=== PATIENT | male | born 1950 | race African-American/Black ===

== ENCOUNTER 2018-12-12 13:41 | Outpatient (CLI) | payer BC ==
--- NOTE | 2018-12-12 14:14 | ULT ---
RENAL ULTRASOUND: HISTORY: Acute renal failure. FINDINGS: Real-time imaging of the right and left kidneys were performed. The right kidney measures 9.1 cm and the left kidney 9.6 cm in size. No signs of cyst, mass, or obstruction. The bladder is never fully distended . There is a suggestion of some possible bladder wall thickening , but this could be on the basis of under distention. IMPRESSION: 1. Findings suggesting some mild bladder wall thickening, although this could be related mainly to u nder distention, although this be related mainly to under distention. 2. No signs of any obstruction of either kidney. Renal cortex appears fairly well preserved. POS: TPC
== END 2018-12-12 13:42 | disposition home or self-care (01) ==
LOC: BICULT 13:41
PROVIDERS: ATTEND Internal Medicine Nephrology
DX: N17.9 Acute kidney failure, unspecified (principal)
CPT/HCPCS: 76770

== ENCOUNTER 2020-03-07 12:25 | Day surgery (SDC) | payer MEDICARE ==
[2020-03-07 06:53] VITALS: BMI 29.7
[2020-03-07 13:22] LABS: #Basophils 0.1 thou/uL (0.0-0.2); #Eosinphils 0.1 thou/uL (0.0-0.7); #Monocytes 0.5 thou/uL (0.11-0.59); #Neutrophils 4.3 thou/uL (1.40-6.50); %Basophils 1.1 % (0.0-1.0); %Eosinophils 1.9 % (0.0-10.0); %Lymphocytes 28.7 % (21.0-51.0); %Monocytes 7.1 % (0.0-10.0); %Neutrophils 61.3 % (42.0-75.0); Mean Corpuscular HGB CONC 30.9 g/dL (32.0-36.0); Mean Corpuscular Hemoglobin 27.5 pg (27.0-31.0); Mean Corpuscular Volume 88.9 fL (78.0-98.0); Mean Platelet Volume 9.4 fL (7.4-10.4); Platelet Count 221 thou/uL (130-400); RBC Distribution Width 17.3 % (11.5-14.5); Red Blood Cell (RBC) Count 4.72 mill/uL (4.70-6.10)
[2020-03-07 13:40] LABS: INR-International Normal Ratio 1.1; PTT 34.1 sec (22.9-36.1)
[2020-03-07 14:51] VITALS: BP 136/90
[2020-03-07 15:22] LABS: RBC Count-Automated (BF) 5608 /cu.mm; WBC/Nucleated-Auto (BF) 238 uL
[2020-03-07 15:28] LABS: Body Fluid Source Ascites Body Fluid; Tube # EDTA
[2020-03-07 15:29] LABS: BF Color Yellow; Clarity Hazy (Clear)
[2020-03-07 15:31] LABS: BF Segmented Neutrophils 8 %; Cell Count Non Hematic 22 %; Eosinophils 3 %; Lymphocytes 66 %
--- NOTE | 2020-03-07 16:40 | ULT ---
Ultrasound-guided paracentesis: HISTORY: Chronic kidney disease and ascites. FINDINGS: Informed consent obtained prior to the procedure. Preprocedural imaging demonstrated intrap eritoneal free fluid. Only a small amount of intraperitoneal free fluid is seen adjacent to the right hepatic lobe. An area was marked in the right upper quadrant, and then meticulously prepped and draped in normal st erile fashion and anesthetized with 1% buffered lidocaine. With direct sonographic guidance, a 25-gauge needle was advanced into the abdomen. Approximately 20 m L of clear straw-colored fluid was aspirated. The needle was removed, and hemostasis was achieved with direct pressure. A dry sterile dressing was placed. The patient tolerated the procedure well and without immediate complication. IMPRESSION: 1. Technically successful ultrasound-guided paracentesis. 2 Small amount of ascites adjacent to the right hepatic lobe.
== END 2020-03-07 14:30 | disposition home or self-care (01) ==
LOC: ULT 12:25
PROVIDERS: ATTEND Internal Medicine Nephrology
PROC: 0W9G3ZZ Drainage of Peritoneal Cavity, Percutaneous Approach (ICD-10-PCS; principal; 2020-03-07)
DX: R18.8 Other ascites (principal); I12.9 Hypertensive chronic kidney disease with stage 1 through stage 4 chronic kidney disease, or unspecified chronic kidney disease; N18.3 Chronic kidney disease, stage 3 (moderate); Z79.899 Other long term (current) drug therapy
CPT/HCPCS: 49083; 85025; 85060; 85610; 85730; 87070; 87205; 89051

== ENCOUNTER 2020-03-25 16:58 | Inpatient (IN) | payer MEDICARE, OTHER ==
[2020-03-25 17:30] LABS: #Basophils 0.1 thou/uL (0.0-0.2); #Eosinphils 0.1 thou/uL (0.0-0.7); #Lymphocytes 1.8 thou/uL (1.20-3.40); #Monocytes 0.5 thou/uL (0.11-0.59); %Eosinophils 1.8 % (0.0-10.0); %Lymphocytes 23.3 % (21.0-51.0); %Neutrophils 66.8 % (42.0-75.0); Hemoglobin 12.8 g/dL (14.0-18.0); Mean Corpuscular HGB CONC 31.4 g/dL (32.0-36.0); Mean Corpuscular Hemoglobin 27.7 pg (27.0-31.0); Mean Corpuscular Volume 88.3 fL (78.0-98.0); Mean Platelet Volume 9.4 fL (7.4-10.4); Platelet Count 220 thou/uL (130-400); RBC Distribution Width 17.4 % (11.5-14.5); Red Blood Cell (RBC) Count 4.63 mill/uL (4.70-6.10); White Blood Cell (WBC) Count 7.5 thou/uL (4.8-10.8)
[2020-03-25 18:00] LABS: ALT (SGPT) 17 U/L (8-55); AST (SGOT) 19 U/L (5-34); Albumin 3.3 g/dL (3.4-4.8); Alkaline Phosphatase 142 U/L (40-110); Anion Gap 16 mmol/L (10-20); BUN (Urea Nitrogen) 30 mg/dL (8.4-25.7); Bilirubin, Total 0.9 mg/dL (0.2-1.2); Calc. Creatinine Clearance 0 mL/min (70-130); Calcium 8.7 mg/dL (7.8-10.44); Carbon Dioxide 20 mmol/L (23-31); Chloride 109 mmol/L (98-107); Estimated GFR-MDRD 29; Glucose 108 mg/dL (80-115); Protein, Total 6.3 g/dL (5.8-8.1); Sodium 141 mmol/L (136-145)
--- NOTE | 2020-03-25 18:17 | RAD ---
CHEST TWO VIEWS: 03/25/20 COMPARISON: None. HISTORY: Fluid overload. FINDINGS: Cardiac silhouette appears enlarged. Small bilateral pleural effusions are suspected, left greater t lemus right. There is pulmonary vascular congestion. No pneumothorax is seen. No lobar consolidation or alveolar edema. IMPRESSION: Enlarged cardiac silhouette with small bilateral pleural effusions and pulmonary vascular congestion suspicious for congestive failure and associated edema. Recommend follow-up imaging following treatme nt to document resolution. POS: CARLO
[2020-03-25 18:20] LABS: CKMB 6.1 ng/mL (0-6.6)
[2020-03-25] MEDS ORDERED: Aspirin Chewable 81 MG TAB ONE (18:32)
[2020-03-25] MEDS ORDERED: Furosemide 40 MG/4 ML VIAL ONE (18:34)
[2020-03-25] MEDS ORDERED: Magnesium 2 GM/50 ML BAG (IN WATER) ONE (19:13)
[2020-03-25] MEDS ORDERED: Nitroglycerin 2% Ointment 1 INCH/1 GM Packet ONE (19:13)
[2020-03-25 21:16] LABS: Troponin I 0.064 ng/mL (< 0.028)
[2020-03-25] MEDS ORDERED: Nitroglycerin 0.4 MG TAB (25 Tab Bottle) SL PRN (22:26)
[2020-03-25] MEDS ORDERED: cloNIDine 0.1 MG TAB PO PRN (22:35)
[2020-03-25] MEDS ORDERED: Guaifenesin DM 100-10/5 ML UDCUP PO PRN (22:35)
[2020-03-25] MEDS ORDERED: Acetaminophen 325 MG TAB PO PRN (22:35)
[2020-03-25] MEDS ORDERED: Labetalol HCl 100 MG/20 ML VIAL SLOW IVP PRN (22:35)
[2020-03-25] MEDS ORDERED: hydrALAZINE 20 MG/ML VIAL SLOW IVP PRN (22:35)
[2020-03-25] MEDS ORDERED: Ondansetron PF 4 MG/2 ML Vial IVP PRN (22:35)
[2020-03-25] MEDS ORDERED: Promethazine HCl 12.5 MG in Sodium Chloride 0.9% 50 ML IVPB PRN (22:35)
--- NOTE | 2020-03-25 22:36 | PDOC.HHP ---
Hospitalist HPI - History of Present Illness Volume overload, shortness of breath History of Present Illness: Patient is a 69 year old male with PMH hernia, gout, HTN, CKD, GERD sent from Dr Nevarez office for volume overload. Patient is a poor historian, but reports that Dr Butterfield is basically his PCP since his saw Dr Butterfield while she was on HD (now has kidney transplant). He went to Dr Butterfield today for some shortness of breath which has been worsening over last several months, worse with exertion. He also reports extreme tiredness, swelling in BLE. Patient is on lasix every other day which was helping somewhat, he has been on this for a few months. He does report some CKD history, GFR 30 here, but denies any history of urinary retention, no history of CHF or other cardiac testing or cardiac history. He deniest chest pain or palptiations. Dr Butterfield observed signs of overload, such as JVD and abnormal EKG, patient referred to ED for cardiac workup. In ED, CXR w/ congestion, TnI 0.075[place] [address], exam w/ s3, 2+ pitting edema, vital signs hypertensive and tachypneic, EKG w/ 1st degree AVB, nonspecfic T wave changes, patient received asa, nitropaste, IV lasix, admitted for further workup and care. Hospitalist ROS - Review of Systems Constitutional: denies: fever, chills, sweats, weakness, malaise, other Eyes: denies: pain, vision change, conjunctivae inflammation, eyelid inflammation, redness, other ENT: denies: ear pain, ear discharge, nose pain, nose discharge, nose congest ion, mouth pain, mouth swelling, throat pain, throat swelling, other Respiratory: reports: shortness of breath, SOB with excertion. denies: cough, dry, hemoptysis, pleuritic pain, sputum, wheezing, other Cardiovascular: denies: chest pain, palpitations, orthopnea, paroxysmal noc. dyspnea, edema, light headedness, other Gastrointestinal: denies: nausea, vomiting, abdominal pain, diarrhea, constipation, melena, hematochezia, other Genitourinary: denies: dysuria, frequency, incontinence, hematuria, retention, other Musculoskeletal: denies: neck pain, shoulder pain, arm pain, back pain, hand pain, leg pain, foot pain, other Skin: denies: rash, lesions, laurel, bruising, other Neurological: denies: weakness, numbness, incoordination, change in speech, confusion, seizures, other All other systems reviewed; all pertinent +/- noted in HPI/Subj - Medication Medications: metoprolol tartrate oral TueMar 25, 2020 19:39 RENETTA Abbott, Nicole tablet : Strength - 25 mg : ORAL Patient Dose: 1 tab(s) Oral once a day (at bedtime). omeprazole TueMar 25, 2020 19:40 RENETTA Abbott, Nicole capsule,delayed release(DR/EC) : Strength - 10 mg : ORAL Patient Dose: Unknown. Lasix oral TueMar 25, 2020 19:40 RENETTA Abbott Mikayla tablet : Strength - 40 mg : ORAL Patient Dose: 1 tab(s) Oral once a day.TAKE ONE PILL EVERY OTHER DAY. Hospitalist History - Past Medical History Other Medical History: hernia, gout, HTN, CKD, GERD - Past Surgical History Other Surgical History: colon surgery - Family History Family History: reports: no pertinent history - Social History Smoking Status: Never smoker Alcohol: reports: None Drugs: reports: none - Exam General Appearance: NAD, awake alert Eye: PERRL, anicteric sclera ENT: normocephalic atraumatic, no oropharyngeal lesions, moist mucosa Neck: supple, symmetric, no JVD, no thyromegaly, no lymphadenopathy, no carotid bruit Heart: RRR, no murmur, no gallops, no rubs, normal peripheral pulses Heart - other findings: s3 Respiratory: CTAB, normal chest expansion, no tachypnea, normal percussion Respiratory - other findings: bibasilar dependant crackles. Gastrointestinal: soft, non-tender, non-distended, normal bowel sounds, no palpable masses, no hepatomegaly, no splenomegaly, no bruit Extremities: no cyanosis, no clubbing, 2+ LE edema Skin: normal turgor, no lesions, no rashes Neurological: cranial nerve grossly intact, normal sensation to touch, no weakness, no focal deficits, no new deficit Musculoskeletal: normal tone, normal strength, no muscle wasting Psychiatric: normal affect, normal behavior, A&O x 3 Hospitalist Results - Labs Result Diagrams: 03/26/20 03:33 03/25/20 17:21 Lab results: WBC 7.5 thou/uL (4.8-10.8) 03/25/20 17:21 Hgb 12.8 g/dL (14.0-18.0) L 03/25/20 17:21 Hct 40.9 % (42.0-52.0) L 03/25/20 17:21 MCV 88.3 fL (78.0-98.0) 03/25/20 17:21 Plt Count 220 thou/uL (130-400) 03/25/20 17:21 Neutrophils % 66.8 % (42.0-75.0) 03/25/20 17:21 Sodium 141 mmol/L (136-145) 03/25/20 17:21 Potassium 4.0 mmol/L (3.5-5.1) 03/25/20 17:21 Chloride 109 mmol/L (98-107) H 03/25/20 17:21 Carbon Dioxide 20 mmol/L (23-31) L 03/25/20 17:21 BUN 30 mg/dL (8.4-25.7) H 03/25/20 17:21 Creatinine 2.64 mg/dL (0.7-1.3) H 03/25/20 17:21 Glucose 108 mg/dL (80-115) 03/25/20 17:21 Calcium 8.7 mg/dL (7.8-10.44) 03/25/20 17:21 Total Bilirubin 0.9 mg/dL (0.2-1.2) 03/25/20 17:21 AST 19 U/L (5-34) 03/25/20 17:21 ALT 17 U/L (8-55) 03/25/20 17:21 Alkaline Phosphatase 142 U/L (40-110) H 03/25/20 17:21 CK-MB (CK-2) 6.1 ng/mL (0-6.6) 03/25/20 17:21 Troponin I 0.064 ng/mL (< 0.028) H 03/25/20 20:44 B-Natriuretic Peptide 86918.3 pg/mL (0-100) H 03/25/20 17:21 Serum Total Protein 6.3 g/dL (5.8-8.1) 03/25/20 17:21 Albumin 3.3 g/dL (3.4-4.8) L 03/25/20 17:21 Additional comment: VITAL SIGNS TueMar 25, 2020 19:43 RENETTA Abbott, Nicole BP: 145/116 Pulse: 89 Resp: 22 Temp: 97.7 (Oral) Pain: 0 O2 sat: 96 on (Room Air) Time: 03/25/2020 19:43. - EKG Interpretation EKG: NSR 89 bpm, QTc 464, HI 210/AVB, no acute St changes, nonspecific T wave changes Hospitalist H&P A/P - Plan Plan: Patient is a 69 year old male with PMH hernia, gout, HTN, CKD, GERD sent from Dr Nevarez office for volume overload. # volume overload # CKD III-IV # possible CHF # elevated troponin - concerning for CHF Patient went to Dr Butterfield today for progressive shortness of breath, fatigue, swelling in BLE, on PO lasix, no history of CHF or other cardiac testing or cardiac history. He denies chest pain or palptiations. In ED, CXR w/ congestion, TnI 0.075, [place] [address], exam w/ s3, 2+ pitting edema, vital signs hypertensiv e and tachypneic, EKG w/ 1st degree AVB, nonspecfic T wave changes, patient received asa, nitropaste, IV lasix, admitted for further workup and care. - admit to telemetry - start IV lasix - consult cardiology - echo, stress test - I/Os - continue asa, nitropatch, statin, BB # hypomagnisemia - replacement parameters # HTN - PRN medications available # gout - resume home meds once med rec complete # GERD - ppx ordered DVT/GI ppx Full code
[2020-03-25] MEDS ORDERED: Electrolyte Replacement Protocol FS SCH (22:45)
[2020-03-26 01:48] LABS: Troponin I 0.088 ng/mL (< 0.028)
[2020-03-26 03:07] VITALS: BMI 31.1
[2020-03-26 03:59] LABS: #Basophils 0.1 thou/uL (0.0-0.2); #Eosinphils 0.3 thou/uL (0.0-0.7); #Lymphocytes 1.8 thou/uL (1.20-3.40); #Monocytes 0.7 thou/uL (0.11-0.59); #Neutrophils 5.7 thou/uL (1.40-6.50); %Basophils 0.7 % (0.0-1.0); %Eosinophils 3.1 % (0.0-10.0); %Lymphocytes 21.2 % (21.0-51.0); %Monocytes 7.8 % (0.0-10.0); %Neutrophils 67.2 % (42.0-75.0); Hemoglobin 11.8 g/dL (14.0-18.0); Mean Corpuscular HGB CONC 30.3 g/dL (32.0-36.0); Mean Corpuscular Hemoglobin 26.9 pg (27.0-31.0); Mean Corpuscular Volume 88.6 fL (78.0-98.0); Mean Platelet Volume 9.7 fL (7.4-10.4); Platelet Count 212 thou/uL (130-400); RBC Distribution Width 17.3 % (11.5-14.5); White Blood Cell (WBC) Count 8.5 thou/uL (4.8-10.8)
[2020-03-26 04:23] LABS: Anion Gap 15 mmol/L (10-20); BUN (Urea Nitrogen) 29 mg/dL (8.4-25.7); Calc. Creatinine Clearance 38 mL/min (70-130); Calcium 8.6 mg/dL (7.8-10.44); Carbon Dioxide 21 mmol/L (23-31); Cardiac Risk 3.1 (Less than 4.5); Chloride 109 mmol/L (98-107); Cholesterol 117 mg/dl (< 200 Desired); Estimated GFR-MDRD 31; Glucose 139 mg/dL (80-115); HDL Cholesterol 38 mg/dL (>60 Neg Risk); LDL Cholesterol, Calculated 61 mg/dL; Magnesium 1.7 mg/dL (1.6-2.6); Potassium 3.6 mmol/L (3.5-5.1); Sodium 141 mmol/L (136-145); Triglycerides 92 mg/dL (Less than 150)
[2020-03-26 04:25] LABS: Troponin I 0.089 ng/mL (< 0.028)
[2020-03-26] MEDS ORDERED: Magnesium 2 GM/50 ML 2 GM in Premix Bag 1 BAG IVPB SCH (04:30)
[2020-03-26] MEDS: Nitroglycerin 2% Ointment 1 INCH/1 GM Packet TOP SCH ×3 (05:56→20:25)
[2020-03-26] MEDS: Aspirin Chewable 81 MG TAB PO SCH (08:51)
[2020-03-26] MEDS: Furosemide 40 MG/4 ML VIAL SLOW IVP SCH (08:51)
[2020-03-26] MEDS: Heparin 5,000 UNITS/ML VIAL SC SCH ×2 (08:52→20:25)
[2020-03-26 12:02] LABS: SARS-CoV-2 MS2 Positive; SARS-CoV-2 N Gene Negative; SARS-CoV-2 S Gene Negative; SARS-CoV-2 by NAA Not Detected (NotDetected); SARS-CoV-2 orf1ab Negative
--- NOTE | 2020-03-26 13:45 | PDOC.HOSPP ---
- Subjective Encounter Date: 03/26/20 Encounter Time: 13:40 Subjective: f/u for volume overload and likely CHF in conjunction with CKD. Receiving Lasix IV and - Objective Vital Signs & Weight: Vital Signs (12 hours) Temp Pulse Resp BP Pulse Ox 03/26/20 13:25 97.7 F 98 16 120/79 95 03/26/20 07:39 98.5 F 89 12 137/96 H 95 03/26/20 04:00 97.8 F 92 18 130/96 H 97 Weight Weight 210 lb 14.4 oz Result Diagrams: 03/26/20 03:33 03/26/20 03:33 Additional Labs: Laboratory Tests 03/25/20 03/25/20 03/25/20 17:21 17:21 17:21 Hgb 12.8 L Creatinine 2.64 H Magnesium Troponin I B-Natriuretic Peptide 48106.3 H 03/25/20 03/25/20 03/25/20 17:21 17:29 20:44 Hgb Creatinine Magnesium 1.5 L Troponin I 0.075 H 0.064 H B-Natriuretic Peptide 03/26/20 03/26/20 01:00 03:33 Hgb Creatinine Magnesium Troponin I 0.088 H 0.089 H B-Natriuretic Peptide Radiology Reviewed by me: Yes (PCXR - bilat pulm edema) EKG Reviewed by me: Yes (Tele - SR) Hospitalist ROS - Medication Medications: Active Medications Generic Name Dose Route Start Last Admin Trade Name Freq PRN Reason Stop Dose Admin Aspirin 81 mg 03/26/20 09:00 03/26/20 08:51 Aspirin Chewable 81 Mg Tab PO 81 mg DAILY CASSIDY Administration Furosemide 40 mg 03/26/20 09:00 03/26/20 08:51 Furosemide 40 Mg/4 Ml Vial SLOW IVP 40 mg DAILY CASSIDY Administration Heparin Sodium (Porcine) 5,000 units 03/26/20 09:00 03/26/20 08:52 Heparin 5,000 Units/Ml Vial SC Not Given BID CASSIDY Nitroglycerin 0.5 inch 03/26/20 06:00 03/26/20 05:56 Nitroglycerin 2% Ointment 1 Inch/1 Gm Packet TOP Not Given Q8HR CASSIDY Pantoprazole Sodium 40 mg 03/26/20 09:00 03/26/20 08:51 Pantoprazole 40 Mg Tab PO 40 mg DAILY CASSIDY Administration Sodium Chloride 10 ml 03/26/20 09:00 03/26/20 08:53 Flush - Normal Saline 10 Ml Syringe IVF 10 ml Q12HR CASSIDY Administration - Exam General Appearance: NAD, awake alert Eye: PERRL, anicteric sclera ENT: normocephalic atraumatic, no oropharyngeal lesions Neck: supple, symmetric, no JVD, no thyromegaly, no lymphadenopathy Heart: RRR, no gallops, no rubs, normal peripheral pulses Heart - other findings: S1, S2, faint S3 Respiratory: no ronchi, normal chest expansion, no tachypnea Respiratory - other findings: bibasilar rales Gastrointestinal: soft, non-tender, non-distended, normal bowel sounds Extremities: no cyanosis, 2+ LE edema Skin: normal turgor Neurological: cranial nerve grossly intact, no new deficit Musculoskeletal: normal tone, normal strength Psychiatric: normal affect, A&O x 3 Hosp A/P (1) Acute CHF (congestive heart failure) Code(s): I50.9 - HEART FAILURE, UNSPECIFIED Status: Acute Qualifiers: Heart failure type: unspecified Qualified Code(s): I50.9 - Heart failure, unspecified Plan: Continue Lasix 40mg IV daily, daily I/O's, daily weight, 2D echo pending (2) Acute kidney injury superimposed on CKD Code(s): N17.9 - ACUTE KIDNEY FAILURE, UNSPECIFIED; N18.9 - CHRONIC KIDNEY DISEASE, UNSPECIFIED Status: Acute Plan: Monitor renal function closely given diuretics, serial creatinine (3) Type 2 myocardial infarction due to heart failure Code(s): I50.9 - HEART FAILURE, UNSPECIFIED; I21.A1 - MYOCARDIAL INFARCTION TYPE 2 Status: Acute Plan: Cardiology consult pending, 2D echo, ? consideration for heart cath, [employer] pending (4) Hypomagnesemia Code(s): E83.42 - HYPOMAGNESEMIA Status: Acute Plan: Improved with supplementation, serial monitoring (5) HTN (hypertension) Code(s): I10 - ESSENTIAL (PRIMARY) HYPERTENSION Status: Chronic Qualifiers: Hypertension type: essential hypertension Qualified Code(s): I10 - Essential (primary) hypertension Plan: Continue Metoprolol - Plan out of bed/ambulate, DVT proph w/SCDs Stable currently Continue Lasix 40mg IV daily Serial I/O's, Daily weight 2D echo pending Cardiology consult pending AM lab: CMP
--- NOTE | 2020-03-26 14:29 | NM ---
CARDIAC SPECT: CLINICAL HISTORY: 69-year-old male with CHF, hypertension. TECHNIQUE: A myocardial perfusion scan was performed using the single isotope one day protocol with technetium-9 9m sestamibi. 10 mCi were injected intravenously for the rest exam followed by 29 mCi for the stress exam. Pharmacologic stress with Adenosine was monitored and interpreted by Dr. Peralta. FINDINGS: The left ventricular cavity is dilated. No reversible or fixed defects are seen on the stress or rest images. GATED SPECT LVEF: 25%. WALL MOTION EXAM: Global hypokinesis. IMPRESSION: No evidence of reversible ischemia. POS: AH
[2020-03-26] MEDS ORDERED: ADENOSINE 60 MG/20 ML VIAL ONE (15:10)
[2020-03-26] MEDS ORDERED: Furosemide 40 MG/4 ML VIAL SLOW IVP SCH (16:00)
[2020-03-26] MEDS: Carvedilol 3.125 MG TAB PO SCH (17:12)
--- NOTE | 2020-03-26 20:24 | CON ---
DATE OF CONSULTATION: 03/26/2020 REASON FOR CONSULTATION: Congestive heart failure, abnormal stress test. HISTORY OF PRESENT ILLNESS: Mr. Crespo is a 69-year-old patient. The patient has a history of renal insufficiency, also has a history of some shortness of breath, but in the last few months, his shortness of breath has been progressively worse. It is worse with exertion and now with a very low level activity. He also noted swelling of his lower extremities. He was taking Lasix every other day, which helped, but the problem was continuing to worsen. The patient was sent to the emergency room, found to be in congestive heart failure. He has received Lasix with some results. No chest pain or pressure. MEDICATIONS: 1. Lasix every other day. 2. Metoprolol 25 mg each evening. 3. Allopurinol. 4. Multivitamin. ALLERGIES: NONE KNOWN. SOCIAL HISTORY: No alcohol or tobacco. He is . His is accompanying him. His has had renal transplantation. REVIEW OF SYSTEMS: CONSTITUTIONAL: No significant weight loss. VISION: No changes. HEARING: No changes. PULMONARY: Positive for shortness of breath. CARDIAC: Positive for shortness of breath. GASTROINTESTINAL: No nausea, vomiting, or diarrhea. SKIN: No rashes. NEUROLOGIC: No unilateral weakness or numbness. PSYCHIATRIC: No unusual depression or anxiety. HEMATOLOGIC: No unusual bruising. GENITOURINARY: No burning with urination. PHYSICAL EXAMINATION: GENERAL: This is a pleasant 69-year-old man, resting comfortably, in no distress. VITAL SIGNS: Blood pressure 130/90. Pulse in the 90s, it is sinus. NECK: Veins are markedly distended, really up to the angle of the jaw when he is lying back about 45 degrees. LUNGS: Few basilar rales. CARDIAC: Normal S1, normal S2. I do not hear murmur, rub, or gallop. ABDOMEN: Soft, nontender, he may have some ascites. He has a large ventral hernia. EXTREMITIES: Moderate edema, some of which looks chronic. Chronic venous stasis changes. PULSES: I do not feel pedal pulses. I do feel femoral pulses, right better than the left. PERTINENT LABORATORY DATA: The creatinine yesterday was 2.64, which correlates with a GFR calculated at 29. I suspect it is not that good as he has substantial amounts of edema and his dry weight is really lower than what his actual weight is currently. EKG, sinus rhythm, possible anterior infarct. The troponin levels are elevated, but flat, most recently 0.089. Stress test revealed ejection fraction 25%, no focal ischemia. ASSESSMENT: 1. Congestive heart failure, systolic, acute on chronic, still in some degree of heart failure. 2. Stage IV renal failure. 3. Substantial edema. 4. Probably, he has had some peripheral vascular disease. At some point, the patient will need cardiac catheterization, but I would like to improve his heart failure status first. We will continue with intravenous diuretics. We will tentatively plan to proceed to cardiac catheterization on Tuesday. I discussed the risk with the patient and including kidney failure and need for dialysis, risk of stroke, heart attack, iodine allergy, loss of blood supply to leg or kidney, stent thrombosis, stent restenosis. They understand and wish to proceed. The patient ultimately may need defibrillator implantation, will likely need a LifeVest. Long-term prognosis is guarded in view of this degree of left ventricular dysfunction with dilated left ventricle in the setting of advanced renal failure. We will follow with you. At this time, could not start YANELIS inhibitors or angiotensin receptor blockers in view of the kidney function. We will change from metoprolol to carvedilol. Job ID: [id number]
[2020-03-26] MEDS: Atorvastatin Calcium 40 MG TAB PO SCH (20:25)
[2020-03-27] MEDS: Nitroglycerin 2% Ointment 1 INCH/1 GM Packet TOP SCH ×3 (05:00→22:52)
[2020-03-27 05:31] LABS: ALT (SGPT) 13 U/L (8-55); AST (SGOT) 20 U/L (5-34); Alkaline Phosphatase 119 U/L (40-110); Anion Gap 15 mmol/L (10-20); BUN (Urea Nitrogen) 26 mg/dL (8.4-25.7); Bilirubin, Total 1.3 mg/dL (0.2-1.2); Calc. Creatinine Clearance 40 mL/min (70-130); Calcium 8.7 mg/dL (7.8-10.44); Carbon Dioxide 24 mmol/L (23-31); Chloride 109 mmol/L (98-107); Estimated GFR-MDRD 32; Glucose 100 mg/dL (80-115); Potassium 3.6 mmol/L (3.5-5.1); Sodium 144 mmol/L (136-145)
[2020-03-27] MEDS ORDERED: Potassium Chloride 20 MEQ TAB PO SCH (08:15)
[2020-03-27] MEDS ORDERED: Carvedilol 3.125 MG TAB PO SCH (08:15)
[2020-03-27] MEDS: Carvedilol 3.125 MG TAB PO SCH ×2 (09:07→17:25)
[2020-03-27] MEDS: Aspirin Chewable 81 MG TAB PO SCH (09:09)
[2020-03-27] MEDS: Furosemide 40 MG/4 ML VIAL SLOW IVP SCH (09:09)
[2020-03-27] MEDS: Heparin 5,000 UNITS/ML VIAL SC SCH ×2 (09:10→20:34)
[2020-03-27] MEDS ORDERED: Communication Order-Pharmacy FS SCH (09:45)
--- NOTE | 2020-03-27 09:58 | PRG ---
DATE OF SERVICE: 03/27/2020 SUBJECTIVE: Mr. Crespo is feeling well. He is not having any chest pain. He is not short of breath. Overall, he feels better. OBJECTIVE: VITAL SIGNS: His blood pressure is 134/100, pulse 90. LUNGS: Clear. CARDIAC: Normal S1, normal S2. ABDOMEN: Soft, nontender. EXTREMITIES: There is no edema. ASSESSMENT: 1. Severely depressed left ventricular function; congestive heart failure, systolic, acute on chronic, clinically improving. The neck veins are lower now. 2. Ejection fraction is 20% to 25%. I suspect cardiomyopathy. 3. Stage 3 to 4 renal failure. PLAN: 1. Proceed to cardiac catheterization tomorrow. Discussed risk of stroke, heart attack, iodine allergy, loss of blood supply to the leg or kidney, stent thrombosis, and stent restenosis. This was discussed yesterday as well and also discussed again this morning. The patient and understand and they wished to proceed. A more thorough discussion was held yesterday. 2. We will try to minimize contrast exposure to reduce risk of renal injury. We will not do left ventriculogram and try to minimize the contrast to the coronaries. 3. We will hold Lasix tomorrow. 4. Give some fluid pre-catheterization, but can only give a modest amount or else he may go back into heart failure. Job ID: [id number]
--- NOTE | 2020-03-27 12:41 | PDOC.HOSPP ---
- Subjective Encounter Date: 03/27/20 Encounter Time: 12:35 Subjective: f/u for Acute/chronic systolic CHF with EF 25% initially managed with IV Lasix. [employer] performed showing global hypokinesis with plans for heart catheterization 03/28/20. Overall feels ok and no new complaints. - Objective Vital Signs & Weight: Vital Signs (12 hours) Temp Pulse Resp BP Pulse Ox 03/27/20 11:30 98.7 F 84 18 116/79 96 03/27/20 07:22 98.6 F 92 17 134/100 H 95 03/27/20 03:18 98.4 F 91 16 134/96 H 97 Weight Weight 210 lb 14.4 oz I&O: 03/26/20 03/27/20 03/28/20 06:59 06:59 06:59 Intake Total 268 Balance 268 Result Diagrams: 03/26/20 03:33 03/27/20 04:56 Radiology Reviewed by me: Yes (2D echo - EF 20-25%, mod-sev TR, mod MR, PA 43mm Hg) EKG Reviewed by me: Yes (Tele - SR) Hospitalist ROS - Medication Medications: Active Medications Generic Name Dose Route Start Last Admin Trade Name Freq PRN Reason Stop Dose Admin Aspirin 81 mg 03/26/20 09:00 03/27/20 09:09 Aspirin Chewable 81 Mg Tab PO 81 mg DAILY CASSIDY Administration Atorvastatin Calcium 40 mg 03/26/20 21:00 03/26/20 20:25 Atorvastatin Calcium 40 Mg Tab PO 40 mg HS CASSIDY Administration Heparin Sodium (Porcine) 5,000 units 03/26/20 09:00 03/27/20 09:10 Heparin 5,000 Units/Ml Vial SC 03/27/20 21:00 5,000 units BID CASSIDY Administration Nitroglycerin 0.5 inch 03/26/20 06:00 03/27/20 05:00 Nitroglycerin 2% Ointment 1 Inch/1 Gm Packet TOP 0.5 inch Q8HR CASSIDY Administration Pantoprazole Sodium 40 mg 03/26/20 09:00 03/27/20 09:09 Pantoprazole 40 Mg Tab PO 40 mg DAILY CASSIDY Administration Sodium Chloride 10 ml 03/26/20 09:00 03/27/20 09:10 Flush - Normal Saline 10 Ml Syringe IVF 10 ml Q12HR CASSIDY Administration - Exam General Appearance: NAD, awake alert Eye: PERRL, anicteric sclera ENT: normocephalic atraumatic, no oropharyngeal lesions Neck: supple, symmetric, no thyromegaly, no lymphadenopathy, JVD Heart: RRR, no gallops, no rubs, normal peripheral pulses Heart - other findings: S1, S2 Respiratory - other findings: bibasilar crackles, few rhonchi Gastrointestinal: soft, non-tender, normal bowel sounds, no palpable masses Extremities: no cyanosis, 2+ LE edema Skin: normal turgor, no lesions Neurological: cranial nerve grossly intact, no new deficit Musculoskeletal: normal tone, normal strength, no muscle wasting Psychiatric: normal affect, A&O x 3 Hosp A/P (1) Acute systolic CHF (congestive heart failure) Code(s): I50.21 - ACUTE SYSTOLIC (CONGESTIVE) HEART FAILURE Status: Acute Plan: EF 20-25% by Echo, plan for heart catheterization to further define coronary a natomy, continue medical mgmt with Lasix/Coreg/ASA (2) Acute kidney injury superimposed on CKD Code(s): N17.9 - ACUTE KIDNEY FAILURE, UNSPECIFIED; N18.9 - CHRONIC KIDNEY DISEASE, UNSPECIFIED Status: Acute Plan: Continue supportive mgmt, low-volume IVF's started in preparation for LHC in am, serial creatinine monitoring (3) Type 2 myocardial infarction due to heart failure Code(s): I50.9 - HEART FAILURE, UNSPECIFIED; I21.A1 - MYOCARDIAL INFARCTION TYPE 2 Status: Acute Plan: See mgmt above, ASA/Lasix/Coreg (4) Hypomagnesemia Code(s): E83.42 - HYPOMAGNESEMIA Status: Acute Plan: Improved after Mg++ supplementation (5) HTN (hypertension) Code(s): I10 - ESSENTIAL (PRIMARY) HYPERTENSION Status: Chronic Qualifiers: Hypertension type: essential hypertension Qualified Code(s): I10 - Es sential (primary) hypertension - Plan plan discussed w/ family, social service agency director, out of bed/ambulate, DVT proph w/SCDs Stable currently Continue Lasix 40mg IV daily Serial I/O's, Daily weight Plan for heart catheterization in am 03/28/20 Cardiology consult appreciated Continue ASA/Coreg/Lipitor AM lab: BMP
[2020-03-27] MEDS: Atorvastatin Calcium 40 MG TAB PO SCH (20:34)
[2020-03-28 04:50] LABS: Anion Gap 12 mmol/L (10-20); BUN (Urea Nitrogen) 25 mg/dL (8.4-25.7); Calc. Creatinine Clearance 40 mL/min (70-130); Calcium 8.4 mg/dL (7.8-10.44); Carbon Dioxide 27 mmol/L (23-31); Chloride 109 mmol/L (98-107); Estimated GFR-MDRD 32; Glucose 115 mg/dL (80-115); Potassium 4.1 mmol/L (3.5-5.1); Sodium 144 mmol/L (136-145)
[2020-03-28] MEDS ORDERED: Sodium Chloride 0.9% 1,000 ML IV SCH ×2 (05:00→09:15)
[2020-03-28] MEDS: Aspirin Chewable 81 MG TAB PO SCH (05:39)
[2020-03-28] MEDS: Carvedilol 3.125 MG TAB PO SCH ×2 (05:39→17:37)
[2020-03-28] MEDS: Nitroglycerin 2% Ointment 1 INCH/1 GM Packet TOP SCH ×3 (06:21→21:34)
[2020-03-28] MEDS ORDERED: Lidocaine 1% (PF) 30 ML VIAL ONE (06:37)
[2020-03-28] MEDS ORDERED: diphenhydrAMINE 50 MG/ML VIAL ONE (07:11)
[2020-03-28] MEDS ORDERED: Nitroglycerin 0.4 MG TAB (25 Tab Bottle) SL PRN (07:46)
[2020-03-28] MEDS ORDERED: Sodium Chloride 0.9% 200 ML IV PRN (07:46)
[2020-03-28] MEDS ORDERED: Nitroglycerin 2% Ointment 1 INCH/1 GM Packet ONE (09:21)
[2020-03-28] MEDS ORDERED: Iopamidol 370 76% 100 ML VIAL ONE (09:28)
--- NOTE | 2020-03-28 09:56 | PDOC.HOSPP ---
- Subjective Encounter Date: 03/28/20 Encounter Time: 09:55 Subjective: Seen and examined in bed. from cardiac catheterization this am. Had episodes of cough during the procedure. At my evaluation no new complaints. He denied any chest pain or shortness of breath. - Objective Vital Signs & Weight: Vital Signs (12 hours) Temp Pulse Resp BP Pulse Ox 03/28/20 03:33 98.3 F 84 22 H 128/85 98 03/28/20 01:50 95 Weight Weight 210 lb 14.4 oz I&O: 03/27/20 03/28/20 03/29/20 06:59 06:59 06:59 Intake Total 268 1484 Balance 268 1484 Result Diagrams: 03/26/20 03:33 03/28/20 09:59 Hospitalist ROS - Medication Medications: Active Medications Generic Name Dose Route Start Last Admin Trade Name Freq PRN Reason Stop Dose Admin Aspirin 81 mg 03/26/20 09:00 03/28/20 05:39 Aspirin Chewable 81 Mg Tab PO 81 mg DAILY CASSIDY Administration Atorvastatin Calcium 40 mg 03/26/20 21:00 03/27/20 20:34 Atorvastatin Calcium 40 Mg Tab PO 40 mg HS CASSIDY Administration Carvedilol 6.25 mg 03/27/20 17:00 03/28/20 05:39 Carvedilol 3.125 Mg Tab PO 6.25 mg BID-WM CASSIDY Administration Nitroglycerin 0.5 inch 03/26/20 06:00 03/28/20 06:21 Nitroglycerin 2% Ointment 1 Inch/1 Gm Packet TOP Not Given Q8HR CASSIDY Pantoprazole Sodium 40 mg 03/26/20 09:00 03/28/20 05:39 Pantoprazole 40 Mg Tab PO 40 mg DAILY CASSIDY Administration Sodium Chloride 10 ml 03/26/20 09:00 03/28/20 09:23 Flush - Normal Saline 10 Ml Syringe IVF 10 ml Q12HR CASSIDY Administration - Exam General - other findings: Patient was seen and examined in bed. Was a bit anxious. Heart - other findings: S1-S2 present and normal. No murmurs gallops or rubs. Respiratory - other findings: Decreased air entry bilaterally. No rhonchi or rales. Gastrointestinal - other findings: Incisional hernia present. bowel sounds present. Extremities - other findings: No edema noted Hosp A/P - Plan 69-year-old male patient on admission on account of heart failure with reduced ejection fraction of unclear etiology. Status post cardiac catheterization. Heart failure Had diuresis Currently receiving IV fluids post contrast We will check BMP Continue close monitoring on telemetry. Continue goal-directed therapy. Will check UDS. Acute kidney injury on CKD. Possibly cardiorenal however BUN/creatinine ratio is concerning No baseline creatinine on chart Creatinine on presentation 2.6 currently 2.41 Consult nephrology. We will monitor BMP Currently receiving IV normal saline to prevent contrast-induced nephropathy. Check FE urea Consult nephrology Type II NST [place] Status post catheterization Continue aspirin Lasix and Coreg. Also on atorvastatin Hypomagnesemia No monitor. Hypertension Blood pressure control Continue manage- carvedilol, VTE prophylaxisHeparin held on account of procedure Restart tomorrow.
[2020-03-28 10:42] LABS: Anion Gap 13 mmol/L (10-20); BUN (Urea Nitrogen) 25 mg/dL (8.4-25.7); Calc. Creatinine Clearance 40 mL/min (70-130); Calcium 8.3 mg/dL (7.8-10.44); Carbon Dioxide 27 mmol/L (23-31); Chloride 108 mmol/L (98-107); Estimated GFR-MDRD 33; Glucose 99 mg/dL (80-115); Potassium 3.8 mmol/L (3.5-5.1); Sodium 144 mmol/L (136-145)
[2020-03-28 12:55] LABS: Amphetamine Not Detected (NotDetected); Barbiturates Screen Not Detected (NotDetected); Benzodiazepine Screen Not Detected (NotDetected); Cocaine Metabolite Screen Not Detected (NotDetected); Medtox Control Line Valid? VALID (VALID); Medtox Reader # READER 4; Methadone Not Detected (NotDetected); Methamphetamine Not Detected (NotDetected); Opiate Screen Not Detected (NotDetected); Oxycodone Screen Not Detected (NotDetected); Phencyclidine (PCP) Not Detected (NotDetected); THC/Cannabinoid Screen Not Detected (NotDetected); Tricyclic Screen Not Detected (NotDetected)
[2020-03-28] MEDS: hydrALAZINE 25 MG TAB PO SCH ×2 (15:14→21:33)
[2020-03-28] MEDS: Atorvastatin Calcium 40 MG TAB PO SCH (21:33)
--- NOTE | 2020-03-29 01:51 | CON ---
DATE OF CONSULTATION: 03/28/2020 HISTORY OF PRESENT ILLNESS: Mr. Crespo is a 69-year-old black male, with known history of chronic renal failure and admitted for shortness of breath. He was found to be in congestive heart failure. He has undergone a cardiac cath, which showed no significant coronary artery disease. However, he has significantly decreased ejection fraction. A stress test has been done with this patient and it showed no active ischemia but showed markedly decreased ejection fraction. We have been consulted for further management of the patient's chronic renal failure. He was seen in the office on March 05, 2020, at that time, he was complaining of some leg edema. Initially, it was felt that he may have diabetic nephropathy to explain the nephrotic range proteinuria. However, his history of diabetes mellitus was obtained from previous medical records from [place]. However on close questioning, patient denies any history of diabetes mellitus. REVIEW OF SYSTEMS: Positive for leg swelling. Positive for abdominal swelling secondary to hernia. No nausea, no vomiting, decreased appetite, decreased energy level. Positive for mild shortness of breath. No gross hematuria. No dysuria. No urinary frequency. No productive cough. No fever or chills. Positive for joint pains. No sore throat. No hematochezia. No melena. CURRENT MEDICATIONS: Patient is on the following medicines: 1. Aspirin 81 mg tablet daily. 2. Atorvastatin 40 mg tablet at bedtime. 3. Carvedilol 6.25 mg p.o. b.i.d. 4. Clonidine 0.1 mg b.i.d. p.r.n. 5. Furosemide 40 mg daily. 6. Heparin 5000 units subcu b.i.d. 7. Hydralazine 25 mg p.o. t.i.d. 8. DuoNeb q.2 hours p.r.n. 9. Nitroglycerin 0.4 mg sublingual q.5 p.r.n. 10. Protonix 40 mg tablet daily. PAST MEDICAL HISTORY: 1. Chronic renal failure. Initially thought could be related from diabetic nephropathy. However, denies history of diabetes. 2. Status post perforated colon. 3. History of gout, history of rheumatoid arthritis. Please note, this patient was previously on Actos, which is more suggestive of a possibility of underlying diabetic nephropathy. PAST SURGICAL HISTORY: Status post colon resection/exploratory lap, status post colonoscopy, recently status post cardiac cath, and status post ultrasound-guided paracenteses. SOCIAL HISTORY: Patient lives in [place], is . He is an oilfield worker. No children. Education, 12th grade. No smoking. Occasional alcohol. No IV drug use. Status post blood transfusion. FAMILY HISTORY: Positive history of ESRD in one brother, on dialysis. ALLERGIES: NONE. TRAUMA: None. IMMUNIZATIONS: Up to date. HOSPITALIZATIONS: Please see past medical history. PHYSICAL EXAMINATION: VITAL SIGNS: Blood pressure is 118/86, heart rate 84, respiratory rate 20, temperature 97.6, and O2 saturation 93%. GENERAL: Patient is awake, alert, supine, comfortable, not in overt distress. SKIN: Adequate turgor. HEENT: He has pinkish conjunctivae. Anicteric sclerae. No neck mass. No carotid bruits. No JVD. CHEST: No deformities. LUNGS: Decreased breath sounds. HEART: Normal sinus rhythm. No murmur. No gallops. No rubs. ABDOMEN: Globular, soft, and nontender. No masses. Positive for a protruding midline umbilical hernia. EXTREMITIES: Positive for edema. NEUROLOGIC: Awake and oriented to 3 spheres. Moving all extremities. No tremors. No asterixis. No ataxia. LABORATORY DATA: Laboratories of March 07, 2020, PD fluid was somewhat hazy, white count 238, segmenters 8%, lymphocytes 66%. March 28, 2020, sodium 144, potassium 3.8, chloride 108, carbon dioxide 27, BUN 25, creatinine 2.41, glucose 99, and calcium 8.3. March 28, 2020, creatinine 2.43. March 27, 2020, creatinine 2.45. March 26, 2020, creatinine was 2.52. March 19, 2020, creatinine 2.6. February 27, 2020, creatinine 2.54. December 18, 2019, creatinine 2.04. September 22, 2018, urinalysis showed protein 100, hyaline casts 11 to 20, 0 to 3 granular cast, rbc's 0 to 3, wbc's 0 to 3. March 19, 2020, urine protein was 647, urine creatinine 145, protein-creatinine ratio noted at 4.4, suggestive of nephrotic range proteinuria. March 19, 2020, hepatitis B surface antigen nonreactive, hepatitis C antibody nonreactive, AGUSTIN negative. ANCA is reported as negative. C3 is 116, C4 is 44.7. Serum KAROLINE-immunofixation shows IgG monoclonal protein with lambda light chain specificity. Urine KAROLINE/immunofixation shows IgG monoclonal protein with lambda light chain specificity. ASSESSMENT AND PLAN: 1. Chronic renal failure. Initially, we put the possibility of diabetic nephropathy with this patient due to his intake of Actos and previous history of diabetes mellitus. However, comprehensive workup for the nephrotic range proteinuria showed an abnormal immunoelectrophoresis and abnormal urine electrophoresis. 2. Immunofixation showed IgG monoclonal protein with lambda light chain specificity. This patient might have underlying plasma cell dyscrasia and for that reason, we will refer the patient to Hematology. 3. Renal function in the last three days has remained stable. There is no indication for any emergent hemodialysis with this patient. I would suggest to start the patient on albumin 25 g IV q.6. Recheck CBC, basic metabolic panel in a.m. 4. Congestive heart failure/cardiomyopathy, currently on Lasix. We will add albumin to enhance the effect of Lasix. The plan is to have the patient a temporary defibrillator placed. 5. Midline umbilical hernia-this is quite large. This patient may eventually need to have a surgical intervention for this. 6. Overall prognosis remains guarded. Job ID: [id number]
[2020-03-29 04:17] LABS: Anion Gap 15 mmol/L (10-20); BUN (Urea Nitrogen) 26 mg/dL (8.4-25.7); Calc. Creatinine Clearance 40 mL/min (70-130); Calcium 8.3 mg/dL (7.8-10.44); Carbon Dioxide 23 mmol/L (23-31); Chloride 109 mmol/L (98-107); Estimated GFR-MDRD 32; Glucose 97 mg/dL (80-115); Potassium 3.8 mmol/L (3.5-5.1); Sodium 143 mmol/L (136-145)
[2020-03-29] MEDS: Nitroglycerin 2% Ointment 1 INCH/1 GM Packet TOP SCH (05:25)
[2020-03-29] MEDS: Furosemide 40 MG TAB PO SCH (07:49)
[2020-03-29] MEDS: Carvedilol 3.125 MG TAB PO SCH ×2 (07:49→17:32)
[2020-03-29] MEDS: Albumin 25% 25 GM/100 ML BOT IVPB SCH ×3 (09:15→21:07)
[2020-03-29] MEDS: Heparin 5,000 UNITS/ML VIAL SC SCH ×2 (09:16→21:08)
[2020-03-29] MEDS: hydrALAZINE 25 MG TAB PO SCH ×3 (09:16→21:07)
[2020-03-29] MEDS: Aspirin Chewable 81 MG TAB PO SCH (09:16)
[2020-03-29] MEDS: Isosorbide Dinitrate 20 MG TAB PO SCH ×3 (09:27→21:07)
--- NOTE | 2020-03-29 10:53 | PRG ---
DATE OF SERVICE: 03/29/2020 SUBJECTIVE: Mr. Crespo is a 69-year-old black male, who was admitted for CHF. He was found to have a cardiomyopathy. We are following up this patient for his acute kidney injury on top of his chronic renal failure. Initially, the patient was told to have diabetes/diabetic nephropathy since he was on Actos on my 1st evaluation. However, he denies having any diabetes. In the interim, he has had a paracentesis done to have a diagnostic workup. Furthermore, during the initial evaluation, we ordered a urine protein, serum immunoelectrophoresis. This was later on found to be positive for monoclonal protein. For this reason, we will be referring the patient to Hematology Oncology. He voices no new complaints today. I started him on albumin to see if I could further improve his renal function. The patient denies any chest pain or shortness of breath at the present time. OBJECTIVE: VITAL SIGNS: Blood pressure 133/93, heart rate 86, respiratory rate 24, temperature 98.4, O2 saturation 97% on room air. GENERAL: The patient is awake, alert, comfortable, not in overt distress. SKIN: Adequate turgor. HEENT: Pinkish conjunctivae. Anicteric sclerae. No neck mass. No carotid bruits. No JVD. CHEST: No deformities. LUNGS: Clear breath sounds. HEART: Normal sinus rhythm. No murmur. No gallops. No rubs. ABDOMEN: Globular, soft. Nontender. No masses. He has some mid-line abdominal protruding hernia. EXTREMITIES: Positive for edema. LABORATORY DATA: Laboratories of March 19, 2020, showed that serum and urine immunofixation shows IgG monoclonal protein with lambda light chain specificity. Chemistries of March 29, 2020: Sodium 143, potassium 3.8, chloride 109, carbon dioxide 23, BUN 26, creatinine 2.43, glucose 97, and calcium 8.3. White count 8.5, hemoglobin 11.8. ASSESSMENT AND PLAN: 1. Chronic renal failure/nephrotic syndrome-unclear etiology, although chronic glomerulonephritis remains. We are awaiting input from Hematology regarding the abnormal electrophoresis. I have not excluded in considering renal biopsy with this patient. Continue albumin infusion. Continue judicious use of diuretics. There is no indication for any dialytic intervention with this patient. 2. Nephrotic range proteinuria-abnormal electrophoresis. Possibility of a plasma cell dyscrasia remains with this patient. 3. Recheck CBC, basic met in a.m. Job ID: [id number]
--- NOTE | 2020-03-29 11:04 | PDOC.HOSPP ---
- Subjective Encounter Date: 03/29/20 Encounter Time: 10:59 Subjective: Patient in bed, no complaint He is drowsy easily goes off to sleep be easily abusable Had PVCs and non sustained VT over night - Objective Vital Signs & Weight: Vital Signs (12 hours) Temp Pulse Resp BP Pulse Ox 03/29/20 07:42 98.4 F 86 24 H 133/93 H 97 03/29/20 03:49 97.9 F 88 20 130/90 96 03/28/20 23:42 87 138/100 H Weight Weight 210 lb 14.4 oz I&O: 03/28/20 03/29/20 03/30/20 06:59 06:59 06:59 Intake Total 1484 1090 Output Total 150 Balance 1484 940 Result Diagrams: 03/26/20 03:33 03/29/20 03:38 Hospitalist ROS - Medication Medications: Active Medications Generic Name Dose Route Start Last Admin Trade Name Freq PRN Reason Stop Dose Admin Albumin Human 25 gm 03/29/20 09:00 03/29/20 09:15 Albumin 25% 25 Gm/100 Ml Bot IVPB 03/30/20 03:01 25 gm Q6H CASSIDY Administration Aspirin 81 mg 03/26/20 09:00 03/29/20 09:16 Aspirin Chewable 81 Mg Tab PO 81 mg DAILY CASSIDY Administration Atorvastatin Calcium 40 mg 03/26/20 21:00 03/28/20 21:33 Atorvastatin Calcium 40 Mg Tab PO 40 mg HS CASSIDY Administration Carvedilol 6.25 mg 03/27/20 17:00 03/29/20 07:49 Carvedilol 3.125 Mg Tab PO 6.25 mg BID-WM CASSIDY Administration Furosemide 40 mg 03/29/20 07:30 03/29/20 07:49 Furosemide 40 Mg Tab PO 40 mg DAILY-AC CASSIDY Administration Heparin Sodium (Porcine) 5,000 units 03/29/20 09:00 03/29/20 09:16 Heparin 5,000 Units/Ml Vial SC 5,000 units BID CASSIDY Administration Hydralazine HCl 25 mg 03/28/20 15:00 03/29/20 09:16 Hydralazine 25 Mg Tab PO 25 mg TID CASSIDY Administration Isosorbide Dinitrate 20 mg 03/29/20 09:00 03/29/20 09:27 Isosorbide Dinitrate 20 Mg Tab PO 20 mg TID CASSIDY Administration Pantoprazole Sodium 40 mg 03/26/20 09:00 03/29/20 09:16 Pantoprazole 40 Mg Tab PO 40 mg DAILY CASSIDY Administration Sodium Chloride 10 ml 03/26/20 09:00 03/29/20 09:19 Flush - Normal Saline 10 Ml Syringe IVF 10 ml Q12HR CASSIDY Administration Hosp A/P - Plan 69-year-old male patient on admission on account of heart failure with reduced ejection fraction of unclear etiology. Status post cardiac catheterization with cardiomyopathy and Ef of 15. He will likely get life vest in a couple of days however he has an incisional hernia that I would want a surgical review prior to discharge as he is a bit improved. Also has proteinuria concerning for paraproteinemiaoncology consult Acute Heart failure Due to cardiomyopathy of unclear origin Has paraproteins thus may be related to AA EF on Cath is 15% Ongoing diuresis Continue close monitoring on telemetry. Continue goal-directed therapy. Cardiology followingLifeVest prior to discharge Acute kidney injury on CKD. Renal function stable No requirement for dialysis the moment Consult nephrology Proteinuria Concerning for paraproteinemia Oncology consulted. Type II NST [place] Status post catheterization Continue aspirin Lasix and Coreg. Also on atorvastatin Hypomagnesemia No monitor. Hypertension Blood pressure control Continue manage- carvedilol, -Incisional hernia Surgery review today VTE prophylaxisHeparin held on account of procedure Restart tomorrow.
[2020-03-29] MEDS ORDERED: Magnesium 2 GM/50 ML 2 GM in Premix Bag 1 BAG IVPB SCH (12:45)
[2020-03-29 14:00] LABS: Troponin I 0.066 ng/mL (< 0.028)
[2020-03-29] MEDS: Atorvastatin Calcium 40 MG TAB PO SCH (21:08)
[2020-03-30] MEDS: Albumin 25% 25 GM/100 ML BOT IVPB SCH (03:46)
[2020-03-30 04:47] LABS: #Basophils 0.1 thou/uL (0.0-0.2); #Eosinphils 0.2 thou/uL (0.0-0.7); #Lymphocytes 1.1 thou/uL (1.20-3.40); #Monocytes 0.4 thou/uL (0.11-0.59); #Neutrophils 3.8 thou/uL (1.40-6.50); %Eosinophils 3.3 % (0.0-10.0); %Lymphocytes 20.2 % (21.0-51.0); %Monocytes 7.8 % (0.0-10.0); %Neutrophils 67.7 % (42.0-75.0); Hemoglobin 10.6 g/dL (14.0-18.0); Mean Corpuscular HGB CONC 31.1 g/dL (32.0-36.0); Mean Corpuscular Hemoglobin 27.6 pg (27.0-31.0); Mean Corpuscular Volume 88.8 fL (78.0-98.0); Mean Platelet Volume 9.8 fL (7.4-10.4); Platelet Count 156 thou/uL (130-400); RBC Distribution Width 17.1 % (11.5-14.5); Red Blood Cell (RBC) Count 3.85 mill/uL (4.70-6.10); White Blood Cell (WBC) Count 5.6 thou/uL (4.8-10.8)
[2020-03-30 05:08] LABS: Anion Gap 14 mmol/L (10-20); BUN (Urea Nitrogen) 30 mg/dL (8.4-25.7); Calc. Creatinine Clearance 37 mL/min (70-130); Calcium 8.6 mg/dL (7.8-10.44); Carbon Dioxide 24 mmol/L (23-31); Chloride 108 mmol/L (98-107); Estimated GFR-MDRD 32; Glucose 88 mg/dL (80-115); Potassium 3.8 mmol/L (3.5-5.1); Sodium 142 mmol/L (136-145)
[2020-03-30] MEDS: Carvedilol 3.125 MG TAB PO SCH ×2 (07:58→17:42)
[2020-03-30] MEDS: Furosemide 40 MG TAB PO SCH (07:58)
--- NOTE | 2020-03-30 08:48 | PDOC.EVN ---
Event Note - Event Note Event Note: Consult dictated. No plans for surgery. I can see him in the office in follow up.
[2020-03-30] MEDS: hydrALAZINE 25 MG TAB PO SCH ×3 (08:54→21:19)
[2020-03-30] MEDS: Aspirin Chewable 81 MG TAB PO SCH (08:54)
[2020-03-30] MEDS: Heparin 5,000 UNITS/ML VIAL SC SCH ×2 (08:54→21:19)
[2020-03-30] MEDS: Isosorbide Dinitrate 20 MG TAB PO SCH ×3 (08:54→21:19)
--- NOTE | 2020-03-30 09:17 | CON ---
DATE OF CONSULTATION: 03/30/2020 CHIEF COMPLAINT: Incisional hernia. HISTORY OF PRESENT ILLNESS: This is a 69-year-old male with a history of significant CHF, who is status post perforated colon treated with exploratory laparotomy at the [facility]. He notes a prolonged healing with that surgery and subsequent hernia. His hernia is asymptomatic. He denies history of incarceration. He has no abdominal pain. He states that it is a nuisance more than anything else. PAST MEDICAL HISTORY: Includes chronic renal failure, perforated colon, rheumatoid arthritis, chronic renal failure, severe CHF. PAST SURGICAL HISTORY: Includes exploratory laparotomy, colonoscopy, cardiac cath, paracentesis. MEDICATIONS: See list. ALLERGIES: NO KNOWN DRUG ALLERGIES. SOCIAL HISTORY: No smoking or alcohol currently. REVIEW OF SYSTEMS: 10 system review of systems is otherwise negative unless described above. PHYSICAL EXAMINATION: VITAL SIGNS: Blood pressure is 142/105, pulse 86, respirations 18. He is afebrile. HEENT: Sclerae are anicteric. Oropharynx clear. NECK: No lymphadenopathy. CHEST: Clear. HEART: Regular rate. ABDOMEN: Soft, nontender. He has large incisional hernia with loss of domain. Well-healed midline incision. LABORATORY DATA: White blood cell count is 5, hemoglobin 10. Sodium 142, creatinine 2.48. ASSESSMENT: 1. Incisional hernia with loss of domain, not in any danger of incarceration or strangulation. 2. Chronic renal failure. 3. Severe congestive heart failure. PLAN: Mr. Crespo is not going to be a candidate for hernia repair. He has a low likelihood of complications of this hernia given that it is so large. However, I recommend follow up with me in the office setting after discharge in a month and I can follow along chronically there. His hernia repair would require component separation, and given his CHF, fluid retention, chronic renal failure, would be fraught with significant comorbidity, so no plans for surgery. Job ID: [id number]
--- NOTE | 2020-03-30 11:26 | PRG ---
DATE OF SERVICE: 03/30/2020 SERVICE: Renal Medicine. SUBJECTIVE: Mr. Crespo is a 69-year-old black male, who was seen by the Renal Service for his acute kidney injury on top of his chronic renal failure. He most likely has had a superimposed prerenal azotemia. We will be giving him colloid infusion albumin 25 g IV q.6 to stabilize the renal function. Kidney function is relatively unchanged. He was also recently diagnosed to have cardiomyopathy/decreased EF-currently on a diuretic regimen. He has also been evaluated by Surgery regarding his midline abdominal hernia-most likely incisional. In addition, due to the abnormal immunofixation study showing IgG monoclonal protein with lambda light chain specificity, he has been evaluated by Hematology. This morning, he voices no new complaints. He denies any chest pain or shortness of breath. OBJECTIVE: VITAL SIGNS: Blood pressure 142/105, heart rate 86, respiratory rate 18, temperature 97.9, O2 saturation 98%. GENERAL: The patient is awake, sitting comfortable, not in overt distress. SKIN: Adequate turgor. HEENT: He has pinkish conjunctivae. Anicteric sclerae. NECK: No neck mass. No carotid bruits. No JVD. CHEST: No deformities. LUNGS: Clear breath sounds. No wheezing. No crackles. HEART: Normal sinus rhythm. No murmurs, gallops, or rubs. ABDOMEN: Globular, soft, nontender. No masses. EXTREMITIES: Trace edema. MEDICATIONS: On March 30, 2020, were reviewed. LABORATORY DATA: On March 30, 2020; white count 5.6, hemoglobin 10.6. Sodium 142, potassium 3.8, chloride 108, carbon dioxide 24, BUN 30, creatinine 2.48, glucose 88, calcium 8.6. Troponin I is 0.066. ASSESSMENT AND PLAN: 1. Acute kidney injury/chronic renal failure, superimposed prerenal azotemia, stable renal function. Creatinine 2.48 is near baseline for the last few days. GFR is 32 mL/minute. Continue current management. Continue judicious use of diuretics. Will not restart albumin for today. 2. Abnormal protein immunoelectrophoresis-? of lambda free chains-Hematology has been consulted. 3. Borderline anemia. We will continue to observe. 4. Cardiomyopathy-awaiting LifeVest placement. Cardiology is following. 5. Recheck CBC and basic metabolic in a.m. Job ID: [id number]
--- NOTE | 2020-03-30 12:57 | PDOC.HOSPP ---
- Subjective Encounter Date: 03/30/20 Encounter Time: 10:00 Subjective: He was seen and examined in bed. Denies any new complaints. No chest pain or shortness of breath. His was in the room with him. - Objective Vital Signs & Weight: Vital Signs (12 hours) Temp Pulse Pulse Pulse Resp BP BP 03/30/20 11:59 83 85 120/77 134/65 03/30/20 11:18 97.8 F 80 18 03/30/20 07:51 97.9 F 86 18 03/30/20 03:47 98.2 F 84 18 BP Pulse Ox Pulse Ox Pulse Ox 03/30/20 11:59 98 95 03/30/20 11:18 134/65 99 03/30/20 07:51 142/105 H 98 03/30/20 03:47 129/88 98 Weight Weight 200 lb 3 oz I&O: 03/29/20 03/30/20 03/31/20 06:59 06:59 06:59 Intake Total 1090 2170 Output Total 150 Balance 940 2170 Result Diagrams: 03/30/20 04:21 03/30/20 04:21 Hospitalist ROS - Medication Medications: Active Medications Generic Name Dose Route Start Last Admin Trade Name Freq PRN Reason Stop Dose Admin Aspirin 81 mg 03/26/20 09:00 03/30/20 08:54 Aspirin Chewable 81 Mg Tab PO 81 mg DAILY CASSIDY Administration Atorvastatin Calcium 40 mg 03/26/20 21:00 03/29/20 21:08 Atorvastatin Calcium 40 Mg Tab PO 40 mg HS CASSIDY Administration Carvedilol 6.25 mg 03/27/20 17:00 03/30/20 07:58 Carvedilol 3.125 Mg Tab PO 6.25 mg BID-WM CASSIDY Administration Furosemide 40 mg 03/29/20 07:30 03/30/20 07:58 Furosemide 40 Mg Tab PO 40 mg DAILY-AC CASSIDY Administration Heparin Sodium (Porcine) 5,000 units 03/29/20 09:00 03/30/20 08:54 Heparin 5,000 Units/Ml Vial SC 5,000 units BID CASSIDY Administration Hydralazine HCl 25 mg 03/28/20 15:00 03/30/20 08:54 Hydralazine 25 Mg Tab PO 25 mg TID CASSIDY Administration Pantoprazole Sodium 40 mg 03/26/20 09:00 03/30/20 08:55 Pantoprazole 40 Mg Tab PO 40 mg DAILY CASSIDY Administration Sodium Chloride 10 ml 03/26/20 09:00 03/30/20 08:55 Flush - Normal Saline 10 Ml Syringe IVF 10 ml Q12HR CASSIDY Administration - Exam General - other findings: In no acute distress. Heart - other findings: S1-S2 present. No murmurs gallops or rubs. Respiratory - other findings: Entry adequate bilaterally. No rhonchi or rales. Gastrointestinal - other findings: Fall sounds present. No tenderness. Large incisional hernia. Extremities - other findings: No edema noted. Hosp A/P - Plan 69-year-old male patient on admission on account of heart failure with reduced ejection fraction of unclear etiology. Status post cardiac catheterization with cardiomyopathy and Ef of 15. Possibly to get LifeVest today. Also has proteinuria concerning for paraproteinemiaoncology consulted Acute Heart failure Due to cardiomyopathy of unclear origin Has paraproteins thus may be related to AA EF on Cath is 15% Ongoing diuresis Continue close monitoring on telemetry. Continue goal-directed therapy. Likely to get LifeVest today Acute kidney injury on CKD. Renal function stable No requirement for dialysis the moment Consult nephrology Paraproteinemia Oncology consulted. Type II NST [place] Status post catheterization Continue aspirin Lasix and Coreg. Also on atorvastatin Hypomagnesemia Corrected Hypertension Blood pressure control Continue manage- carvedilol, -Incisional hernia Surgery reviewedno surgery on this admission VTE prophylaxisHeparin held on account of procedure Restart tomorrow.
--- NOTE | 2020-03-30 15:34 | RAD ---
EXAM: XR Bone Survey Adult STANDARD DATE: 03/30/2020 3:25 PM INDICATION: History of myeloma COMPARISON: None. FINDING: No suspicious osteolytic lesion is grossly evident involving axial and appendicular skeleto n. There are areas of intramedullary bone infarcts involving the distal femurs bilaterally. There is scattered osteoarthritic and degenerative change. There are scattered vascular calcifications. The re is mild dextroscoliosis of the lumbar spine. There are degenerative subchondral cyst-like abnormalities involving the greater tuberosities of both humeral heads with slight elevation of the h umeral head suspicious for underlying rotator cuff insufficiency. The visualized lungs are clear. There is moderate cardiomegaly Gas pattern is unobstructed. There are small phleboliths within the lower left hemipelvis. IMPRESSION:No suspicious osteolytic lesion is grossly evident within the axial or appendicular skelet on. Other findings as above Transcribed Date/Time: 03/30/2020 4:23 PM
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
[2020-03-30] MEDS: Atorvastatin Calcium 40 MG TAB PO SCH (21:19)
[2020-03-31 04:18] LABS: #Basophils 0.1 thou/uL (0.0-0.2); #Eosinphils 0.2 thou/uL (0.0-0.7); #Lymphocytes 1.5 thou/uL (1.20-3.40); #Monocytes 0.6 thou/uL (0.11-0.59); #Neutrophils 4.2 thou/uL (1.40-6.50); %Basophils 0.9 % (0.0-1.0); %Eosinophils 3.4 % (0.0-10.0); %Lymphocytes 22.4 % (21.0-51.0); %Monocytes 8.6 % (0.0-10.0); %Neutrophils 64.7 % (42.0-75.0); Mean Corpuscular HGB CONC 31.5 g/dL (32.0-36.0); Mean Corpuscular Hemoglobin 27.7 pg (27.0-31.0); Mean Corpuscular Volume 87.8 fL (78.0-98.0); Mean Platelet Volume 10.1 fL (7.4-10.4); Platelet Count 161 thou/uL (130-400); Red Blood Cell (RBC) Count 3.96 mill/uL (4.70-6.10); White Blood Cell (WBC) Count 6.5 thou/uL (4.8-10.8)
[2020-03-31 04:39] LABS: Anion Gap 14 mmol/L (10-20); BUN (Urea Nitrogen) 29 mg/dL (8.4-25.7); Calc. Creatinine Clearance 37 mL/min (70-130); Calcium 8.5 mg/dL (7.8-10.44); Carbon Dioxide 23 mmol/L (23-31); Chloride 108 mmol/L (98-107); Estimated GFR-MDRD 32; Glucose 112 mg/dL (80-115); Potassium 3.8 mmol/L (3.5-5.1); Sodium 141 mmol/L (136-145)
[2020-03-31] MEDS: Carvedilol 3.125 MG TAB PO SCH (08:22)
[2020-03-31] MEDS: Furosemide 40 MG TAB PO SCH (08:23)
[2020-03-31] MEDS: Isosorbide Dinitrate 20 MG TAB PO SCH ×3 (08:23→20:44)
[2020-03-31] MEDS: Aspirin Chewable 81 MG TAB PO SCH (08:23)
[2020-03-31] MEDS: hydrALAZINE 25 MG TAB PO SCH ×3 (08:23→20:44)
[2020-03-31] MEDS: Heparin 5,000 UNITS/ML VIAL SC SCH (08:24)
[2020-03-31] MEDS ORDERED: Carvedilol 3.125 MG TAB PO SCH (09:27)
[2020-03-31] MEDS ORDERED: Carvedilol 6.25 MG TAB PO SCH ×3 (09:30→17:00)
[2020-03-31] MEDS ORDERED: Potassium Chloride 20 MEQ TAB PO SCH (09:30)
--- NOTE | 2020-03-31 09:44 | PRG ---
DATE OF SERVICE: 03/31/2020 SUBJECTIVE: Mr. Crespo is a 69-year-old black male, who is followed up by the Renal Service for his acute kidney injury on top of his chronic renal failure. He had a presumptive diagnosis of prerenal azotemia on top of his chronic renal failure. He was also being followed up for his nephrotic range proteinuria. During the workup, he has been noted to have an abnormal immunoelectrophoresis since the Hematology consult. The patient has also been seen by the Surgery Service for his midline incisional hernia. This morning, he voices no new complaints. He denies any chest pain or shortness of breath. OBJECTIVE: VITAL SIGNS: Blood pressure is 135/102, heart rate 87, respiratory rate 17, temperature 97.9, O2 saturation 94%. GENERAL: The patient is awake, alert, comfortable, not in overt distress. SKIN: Adequate turgor. HEENT: He has pinkish conjunctivae. Anicteric sclerae. No neck mass. No carotid bruits. No JVD. CHEST: No deformities. LUNGS: Decreased breath sounds. HEART: Normal sinus rhythm. No murmur. No gallops. No rubs. ABDOMEN: Globular, soft, nontender. Positive for midline hernia. EXTREMITIES: Trace edema. MEDICATIONS: Medications of March 31, 2020, reviewed. LABORATORY DATA: Laboratories of March 31, 2020; white count 6.5, hemoglobin 11. Sodium 141, potassium 3.8, chloride 108, carbon dioxide 23, BUN 29, creatinine 2.49, glucose 112, calcium 8.5. ASSESSMENT AND PLAN: 1. Acute kidney injury/chronic renal failure, superimposed prerenal azotemia. Stable renal function. No indication for any dialytic intervention. 2. Continue supportive care. 3. 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 Bone skeletal survey showed no suspicious osteolytic lesion. 4. Midline incisional abdominal hernia-surgery is following. 5. Cardiomyopathy-for LifeVest placement. 6. Recheck CBC, basic met a.m. Job ID: [id number]
--- NOTE | 2020-03-31 09:46 | PRG ---
DATE OF SERVICE: 03/31/2020 SUBJECTIVE: Mr. Crespo says he is feeling fine. He is not having shortness of breath. No chest pain. OBJECTIVE: VITAL SIGNS: Blood pressure 135/102, pulse is in the high 80s. LUNGS: Clear. CARDIAC: Normal S1, normal S2. ABDOMEN: Soft, nontender. ASSESSMENT: 1. Cardiomyopathy, severe. 2. Renal failure, suspect stage 5, with a creatinine of 2.49. It is varying between 3 and 4. PLAN: 1. He is on carvedilol. We will increase dose to 12.5 mg twice a day. 2. Isosorbide and hydralazine. 3. We are awaiting a LifeVest. 4. Aspirin and atorvastatin. 5. He has mild coronary artery disease. We will also treat . 6. Cannot tolerate YANELIS inhibitors or ARB currently due to renal failure, cannot tolerate spironolactone due to renal failure. Job ID: [id number]
[2020-03-31 10:14] LABS: Kappa Lambda Light Chain Ratio 1.38 (0.26-1.65); Kappa Light Chains 66.3 mg/L (3.3-19.4); Lambda Light Chain 47.9 mg/L (5.7-26.3)
[2020-03-31 17:38] LABS: Alpha 1 0.3 g/dL (0.0-0.4); Alpha 2 0.7 g/dL (0.4-1.0); Beta 0.8 g/dL (0.7-1.3); Gamma 1.1 g/dL (0.4-1.8); Globulin, Total 2.9 g/dL (2.2-3.9); M-Spike 0.1 g/dL (Not Observed)
[2020-03-31 19:46] VITALS: BP 109/68; TEMP 97.6
[2020-03-31] MEDS: Atorvastatin Calcium 40 MG TAB PO SCH (20:44)
[2020-04-01] MEDS ORDERED: Potassium Chloride 10 MEQ TAB PO SCH (08:00)
--- NOTE | 2020-04-01 12:09 | DIS ---
DATE OF ADMISSION: 03/25/2020 DATE OF DISCHARGE: 03/31/2020 DISCHARGE DIAGNOSES: 1. Acute on chronic heart failure. 2. Acute kidney injury on chronic kidney disease. 3. Paraproteinemia. 4. 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 5. Hypomagnesemia. 6. Hypertension. 7. Incisional hernia. BRIEF HOSPITAL COURSE: This is a 69-year-old male patient, admitted on account of acute heart failure with reduced ejection fraction. Etiology was unclear. Cardiology was consulted and he had a cardiac catheterization, revealing cardiomyopathy with EF of about 15%. The patient was managed on diuresis with Lasix, carvedilol, aspirin, atorvastatin, and he was discharged with LifeVest. He will follow with Cardiology for further evaluation. On presentation, due to his chronic kidney disease, the moving picture producer was consulted. It was noted that he had proteinemia, which was evaluated and noted to have paraproteins. Oncology was consulted to evaluate the paraproteins, and after initial evaluation, he was asked to follow up for further evaluation in the clinic. At presentation to the hospital, he had a big anterior abdominal incisional hernia, which may require repair. Surgicalist was consulted, who opted not to do immediate repair, but would evaluate the patient on followup. DISCHARGE PHYSICAL EXAMINATION: GENERAL: The patient is in bed, in no distress. CARDIOVASCULAR SYSTEM: S1 and S2 present and normal. No murmurs, gallops, or rubs. RESPIRATORY SYSTEM: Air entry adequate bilaterally. ABDOMEN: Incisional hernia present. No tenderness or guarding. Bowel sounds present. EXTREMITIES: No edema noted. CONSULTANTS: 1. Cardiology, Dr. Peralta. 2. Oncology, Dr. Sarkar. 3. General Surgery, Dr. Mishra. DISCHARGE CONDITION: Stable. Job ID: [id number]
--- NOTE | 2020-04-03 14:49 | STRESS ---
Acquisition Time: 2020-03-26 11:41:33 Total Exercise Time: 00:04:00 Test Indications: CHF Medications: Protocol: ADENOSINE Max HR: 098 BPM 64% of Pred: 153 BPM Max BP: 170/098 mmHG Max Work Load: 1.0 METS RESTING ECG: NORMAL SINUS RHYTHM AT 96 BPM, LEFT AXIS DEVIATION, FIRST DEGREE AV BLOCK, PREVIOUS ANTERIOR INFARCTION AND OCCASIONAL PVC. SYMPTOMS: NONE NORMAL BP RESPONSE ECTOPY: NONE ECG STRESS: NO SIGNIFICANT CHANGES INTERPRETATION: NEGATIVE ECG/AWAIT NUCLEAR IMAGES FOR DEFINITIVE DIAGNOSIS Confirmed by DR. Rashi CONNOLLY ([id number]), state editor CARLOS HAYES ([id number]) on 04/03/2020 2:49:13 PM Referred By: MD Mario Alberto ALAMO Confirmed By:DR. Rashi CONNOLLY
== END 2020-03-31 21:34 | disposition home or self-care (01) | DRG 281 ==
LOC: ERS 16:58 → 2NO 19:30
PROVIDERS: ADMIT Internal Medicine; ATTEND Internal Medicine
PROC: 3E0234Z Introduction of Serum, Toxoid and Vaccine into Muscle, Percutaneous Approach (ICD-10-PCS; 2020-03-26)
PROC: 4A023N7 Measurement of Cardiac Sampling and Pressure, Left Heart, Percutaneous Approach (ICD-10-PCS; principal; 2020-03-28)
PROC: B2111ZZ Fluoroscopy of Multiple Coronary Arteries using Low Osmolar Contrast (ICD-10-PCS; 2020-03-28)
PROC: B2141ZZ Fluoroscopy of Right Heart using Low Osmolar Contrast (ICD-10-PCS; 2020-03-28)
DX: I50.23 Acute on chronic systolic (congestive) heart failure (principal); I21.A1 Myocardial infarction type 2; N17.9 Acute kidney failure, unspecified; I42.9 Cardiomyopathy, unspecified; I47.2 Ventricular tachycardia; N18.5 Chronic kidney disease, stage 5; Z20.828 Contact with and (suspected) exposure to other viral communicable diseases; M10.9 Gout, unspecified; K21.9 Gastro-esophageal reflux disease without esophagitis; E83.42 Hypomagnesemia; E11.22 Type 2 diabetes mellitus with diabetic chronic kidney disease; M06.9 Rheumatoid arthritis, unspecified; K42.9 Umbilical hernia without obstruction or gangrene; K43.2 Incisional hernia without obstruction or gangrene; D63.1 Anemia in chronic kidney disease; I12.9 Hypertensive chronic kidney disease with stage 1 through stage 4 chronic kidney disease, or unspecified chronic kidney disease; D89.2 Hypergammaglobulinemia, unspecified; I49.3 Ventricular premature depolarization; Z23 Encounter for immunization; Z79.899 Other long term (current) drug therapy; Z79.82 Long term (current) use of aspirin
CPT/HCPCS: 36415; 71046; 76942; 77075; 78452; 80048; 80053; 80061; 80306; 82232; 82553; 83735; 83880; 83883; 84165; 84484; 85025; 87635; 90471; 90732; 93005; 93017; 93306; 93458; 93798; 94760; 96365; 96375; 97139; A9500; G0009; J0153; J1200; J1644; J1940; J2001; J3475; P9047; Q9967; U0003

== ENCOUNTER 2022-07-01 15:54 | Emergency (ER) | payer MEDICARE, SELFPAY | END 2022-07-01 16:38 | disposition home or self-care (01) | LOC: ERS 15:54 | DX: K04.7 Periapical abscess without sinus (principal); K21.9 Gastro-esophageal reflux disease without esophagitis; I10 Essential (primary) hypertension | CPT/HCPCS: 93005 ==

== ENCOUNTER 2022-08-06 16:38 | Inpatient (IN) | payer MEDICARE, OTHER, SELFPAY ==
[2022-08-06 17:29] LABS: #Eosinphils 0.3 thou/uL (0.0-0.7); #Lymphocytes 0.9 thou/uL (1.20-3.40); #Monocytes 0.6 thou/uL (0.11-0.59); #Neutrophils 4.5 thou/uL (1.40-6.50); %Basophils 0.2 % (0.0-1.0); %Eosinophils 4.1 % (0.0-10.0); %Lymphocytes 14.4 % (21.0-51.0); %Monocytes 9.5 % (0.0-10.0); %Neutrophils 71.9 % (42.0-75.0); Hemoglobin 10.1 g/dL (14.0-18.0); Mean Corpuscular Hemoglobin 25.4 pg (27.0-31.0); Mean Corpuscular Volume 82.1 fl (78.0-98.0); Platelet Count 190 10x3/uL (130-400); Red Blood Cell (RBC) Count 3.97 mill/uL (4.70-6.10); White Blood Cell (WBC) Count 6.3 10x3/uL (4.8-10.8)
[2022-08-06 17:49] LABS: ALT (SGPT) 10 U/L (8-55); AST (SGOT) 12 U/L (5-34); Albumin 2.4 g/dL (3.4-4.8); Alkaline Phosphatase 83 U/L (40-110); Anion Gap 13 mmol/L (10-20); BUN (Urea Nitrogen) 71 mg/dL (8.4-25.7); Bilirubin, Total 0.2 mg/dL (0.2-1.2); Calc. Creatinine Clearance 0 mL/min (70-130); Calcium 7.7 mg/dL (7.8-10.44); Carbon Dioxide 18 mmol/L (23-31); Chloride 112 mmol/L (98-107); Estimated GFR 7; Globulin 2.7 g/dL (2.4-3.5); Glucose 97 mg/dL (80-115); Phosphorus 5.9 mg/dL (2.3-4.7); Potassium 4.2 mmol/L (3.5-5.1); Protein, Total 5.1 g/dL (5.8-8.1); Sodium 139 mmol/L (136-145)
[2022-08-06 20:34] LABS: Magnesium 1.4 mg/dL (1.6-2.6)
[2022-08-06] MEDS ORDERED: Ondansetron PF 4 MG/2 ML Vial IVP PRN (20:50)
[2022-08-06] MEDS ORDERED: Magnesium 2 GM/50 ML(in water) 2 GM in Premix Bag 1 BAG IVPB SCH (21:30)
[2022-08-06] MEDS: Sodium Chloride 0.9% 1,000 ML IV SCH (22:29)
[2022-08-06] MEDS: Heparin 5,000 UNITS/ML VIAL SC SCH (22:29)
[2022-08-07 04:27] LABS: #Eosinphils 0.3 thou/uL (0.0-0.7); #Lymphocytes 1.1 thou/uL (1.20-3.40); #Monocytes 0.7 thou/uL (0.11-0.59); #Neutrophils 4.2 thou/uL (1.40-6.50); %Basophils 0.8 % (0.0-1.0); %Eosinophils 5.2 % (0.0-10.0); %Monocytes 10.4 % (0.0-10.0); %Neutrophils 66.6 % (42.0-75.0); Hemoglobin 9.4 g/dL (14.0-18.0); Mean Corpuscular HGB CONC 30.9 g/dL (32.0-36.0); Mean Corpuscular Hemoglobin 25.5 pg (27.0-31.0); Mean Corpuscular Volume 82.7 fl (78.0-98.0); Mean Platelet Volume 10.1 fL (7.4-10.4); Platelet Count 191 10x3/uL (130-400); Red Blood Cell (RBC) Count 3.69 mill/uL (4.70-6.10); White Blood Cell (WBC) Count 6.3 10x3/uL (4.8-10.8)
[2022-08-07 04:56] LABS: Anion Gap 14 mmol/L (10-20); BUN (Urea Nitrogen) 71 mg/dL (8.4-25.7); Calc. Creatinine Clearance 12 mL/min (70-130); Calcium 7.6 mg/dL (7.8-10.44); Carbon Dioxide 18 mmol/L (23-31); Chloride 113 mmol/L (98-107); Estimated GFR 7; Glucose 93 mg/dL (80-115); Magnesium 1.7 mg/dL (1.6-2.6); Potassium 3.9 mmol/L (3.5-5.1); Sodium 141 mmol/L (136-145)
[2022-08-07 04:58] LABS: Phosphorus 5.9 mg/dL (2.3-4.7)
[2022-08-07] MEDS: Heparin 5,000 UNITS/ML VIAL SC SCH ×2 (08:35→20:57)
[2022-08-07] MEDS: Carvedilol 25 MG TAB PO SCH ×2 (08:35→20:57)
[2022-08-07] MEDS: Sodium Chloride 0.9% 1,000 ML IV SCH (10:57)
[2022-08-07] MEDS ORDERED: Epoetin (ESRD) 20,000 UNITS/ML SC SCH (11:00)
[2022-08-07] MEDS ORDERED: Polyethylene Glycol 3350 17 GM Packet PO PRN (12:18)
[2022-08-07] MEDS: EPOETIN ALFA-EPBX (ESRD) 10,000 UNIT/ML VIAL SC SCH (13:01)
[2022-08-07] MEDS ORDERED: Acetaminophen/Codeine 30-300mg Tablet PO PRN (14:03)
[2022-08-07] MEDS: Sodium Bicarbonate Tab 325 MG TAB PO SCH ×2 (15:03→20:57)
[2022-08-07] MEDS: Ferrous Sulfate 325 MG TAB PO SCH (17:11)
[2022-08-08] MEDS: Sodium Chloride 0.9% 1,000 ML IV SCH ×2 (03:07→10:53)
[2022-08-08 05:05] LABS: #Eosinphils 0.3 thou/uL (0.0-0.7); #Lymphocytes 0.9 thou/uL (1.20-3.40); #Monocytes 0.4 thou/uL (0.11-0.59); #Neutrophils 3.4 thou/uL (1.40-6.50); %Basophils 0.1 % (0.0-1.0); %Eosinophils 6.7 % (0.0-10.0); %Lymphocytes 17.9 % (21.0-51.0); %Monocytes 8.6 % (0.0-10.0); %Neutrophils 66.7 % (42.0-75.0); Hemoglobin 9.2 g/dL (14.0-18.0); Mean Corpuscular HGB CONC 30.8 g/dL (32.0-36.0); Mean Corpuscular Hemoglobin 25.6 pg (27.0-31.0); Mean Corpuscular Volume 83.3 fl (78.0-98.0); Mean Platelet Volume 9.9 fL (7.4-10.4); Platelet Count 178 10x3/uL (130-400); RBC Distribution Width 19.8 % (11.5-14.5); Red Blood Cell (RBC) Count 3.59 mill/uL (4.70-6.10); White Blood Cell (WBC) Count 5.1 10x3/uL (4.8-10.8)
[2022-08-08 05:22] LABS: Phosphorus 5.6 mg/dL (2.3-4.7)
[2022-08-08 05:31] LABS: Anion Gap 14 mmol/L (10-20); BUN (Urea Nitrogen) 64 mg/dL (8.4-25.7); Calc. Creatinine Clearance 13 mL/min (70-130); Calcium 7.6 mg/dL (7.8-10.44); Carbon Dioxide 15 mmol/L (23-31); Chloride 114 mmol/L (98-107); Estimated GFR 7; Glucose 92 mg/dL (80-115); Magnesium 1.8 mg/dL (1.6-2.6); Potassium 4.2 mmol/L (3.5-5.1); Sodium 139 mmol/L (136-145)
[2022-08-08] MEDS: Ferrous Sulfate 325 MG TAB PO SCH ×2 (07:44→17:50)
[2022-08-08] MEDS: Carvedilol 25 MG TAB PO SCH ×2 (08:52→21:30)
[2022-08-08] MEDS: Sodium Bicarbonate Tab 325 MG TAB PO SCH ×3 (08:52→21:30)
[2022-08-08] MEDS: Heparin 5,000 UNITS/ML VIAL SC SCH (08:54)
[2022-08-08] MEDS ORDERED: Aspirin Chewable 81 MG TAB PO SCH (09:00)
[2022-08-08] MEDS ORDERED: Fentanyl 100 MCG/2 ML VIAL SLOW IVP SCH (09:30)
[2022-08-08] MEDS ORDERED: Fentanyl 100 MCG/2 ML VIAL ONE (09:34)
[2022-08-08 09:44] LABS: Mean Corpuscular HGB CONC 29.4 g/dL (32.0-36.0); Mean Corpuscular Hemoglobin 24.5 pg (27.0-31.0); Mean Corpuscular Volume 83.3 fl (78.0-98.0); Mean Platelet Volume 9.7 fL (7.4-10.4); Platelet Count 223 10x3/uL (130-400); RBC Distribution Width 19.8 % (11.5-14.5); Red Blood Cell (RBC) Count 4.09 mill/uL (4.70-6.10)
[2022-08-08] MEDS ORDERED: niCARdipine 25 MG/10 ML VIAL ONE ×2 (09:57→10:08)
[2022-08-08 10:05] LABS: #Eosinphils 0.4 thou/uL (0.0-0.7); #Lymphocytes 1.2 thou/uL (1.20-3.40); #Monocytes 0.6 thou/uL (0.11-0.59); #Neutrophils 3.8 thou/uL (1.40-6.50); %Basophils 0.7 % (0.0-1.0); %Eosinophils 6.2 % (0.0-10.0); %Lymphocytes 19.5 % (21.0-51.0); %Monocytes 9.7 % (0.0-10.0); Anisocytosis SLIGHT = 6-15 cells (100X) (0-5/hpf); MDiff Complete? YES; Platelet Morphology Comment Appears Adequate
[2022-08-08 10:08] LABS: INR-International Normal Ratio 1.1; PTT 36.4 sec (22.9-36.1); Prothrombin Time 14.4 sec (12.0-14.7)
[2022-08-08] MEDS ORDERED: Tenecteplase 50 MG ONE (10:08)
[2022-08-08 10:21] LABS: ALT (SGPT) 10 U/L (8-55); AST (SGOT) 13 U/L (5-34); Albumin 2.5 g/dL (3.4-4.8); Alkaline Phosphatase 77 U/L (40-110); Anion Gap 16 mmol/L (10-20); BUN (Urea Nitrogen) 65 mg/dL (8.4-25.7); Bilirubin, Total 0.4 mg/dL (0.2-1.2); CK (CPK) 164 U/L (30-200); Calc. Creatinine Clearance 13 mL/min (70-130); Calcium 7.8 mg/dL (7.8-10.44); Carbon Dioxide 13 mmol/L (23-31); Chloride 113 mmol/L (98-107); Estimated GFR 8; Globulin 2.5 g/dL (2.4-3.5); Glucose 85 mg/dL (80-115); Potassium 4.3 mmol/L (3.5-5.1); Sodium 138 mmol/L (136-145)
[2022-08-08] MEDS ORDERED: Ventilator Sedation Protocol 1 EACH FS SCH (10:30)
[2022-08-08 10:39] LABS: Base Excess (BEa) -8.8 mEq/L (-2.0 to +3.0); CO2 Tension 30.7 mmHg (35.0-45.0); Calcium, Ionized (arterial) 1.11 mmol/L (1.12-1.30); Carboxyhemoglobin (COHb) 0.4 gm% (0.0-3.0); Hemoglobin (Hb) 10.3 g/dL (14.0-18.0); O2 Tension (PaO2), arterial 428.3 mmHg (> 80.0); Potassium - ABG Lab 3.91 mmol/L (3.70-5.30); pH, Arterial 7.33 (7.35-7.45)
[2022-08-08 10:40] LABS: ALV-art Gradient 246.325 mmHg (0-20); Puncture Site RRA
[2022-08-08] MEDS ORDERED: Insulin Regular 300 UNITS/3 ML VIAL SC PRN (10:41)
[2022-08-08] MEDS ORDERED: DISCONTINUE PREVIOUS NARCOTIC PAIN MEDICATIONS AND BENZODIAZEPINES FS SCH (10:45)
[2022-08-08] MEDS ORDERED: Morphine 4 MG/ML VIAL SLOW IVP PRN (10:45)
[2022-08-08] MEDS ORDERED: Fentanyl BOLUS 250 ML IVPB PRN (10:45)
[2022-08-08] MEDS ORDERED: Propofol BOLUS 1,000 MG/100 ML VIAL IV PRN (10:45)
[2022-08-08] MEDS ORDERED: Fentanyl CADD 100 ML IV SCH (10:45)
[2022-08-08] MEDS: Propofol 1,000 MG/100 ML VIAL IV PRN ×3 (10:52→21:45)
[2022-08-08] MEDS ORDERED: niCARdipine 25 MG in Sodium Chloride 0.9% 250 ML 250 ML IVPB SCH (11:00)
[2022-08-08] MEDS ORDERED: niCARdipine 40MG In NaCl 40 MG/200 ML BAG IVPB SCH (11:00)
[2022-08-08 11:09] LABS: CKMB 8.8 ng/mL (0-6.6)
[2022-08-08] MEDS: Pantoprazole 40 MG VIAL IVP SCH (21:31)
[2022-08-09] MEDS: Sodium Chloride 0.9% 1,000 ML IV SCH (00:24)
[2022-08-09] MEDS: Propofol 1,000 MG/100 ML VIAL IV PRN ×4 (02:51→15:15)
[2022-08-09] MEDS: Ferrous Sulfate 325 MG TAB PO SCH ×2 (07:39→11:51)
[2022-08-09] MEDS: Sodium Bicarbonate Tab 325 MG TAB PO SCH ×3 (07:40→21:08)
[2022-08-09] MEDS: Carvedilol 25 MG TAB PO SCH ×2 (07:40→21:08)
[2022-08-09 09:38] LABS: #Eosinphils 0.2 thou/uL (0.0-0.7); #Lymphocytes 0.8 thou/uL (1.20-3.40); #Monocytes 0.8 thou/uL (0.11-0.59); #Neutrophils 5.2 thou/uL (1.40-6.50); %Basophils 0.1 % (0.0-1.0); %Eosinophils 3.6 % (0.0-10.0); %Lymphocytes 11.4 % (21.0-51.0); %Monocytes 10.7 % (0.0-10.0); %Neutrophils 74.2 % (42.0-75.0); Hemoglobin 10.1 g/dL (14.0-18.0); Mean Corpuscular HGB CONC 30.8 g/dL (32.0-36.0); Mean Corpuscular Hemoglobin 25.2 pg (27.0-31.0); Mean Corpuscular Volume 81.6 fl (78.0-98.0); Mean Platelet Volume 10.5 fL (7.4-10.4); Platelet Count 180 10x3/uL (130-400); RBC Distribution Width 19.6 % (11.5-14.5); Red Blood Cell (RBC) Count 4.02 mill/uL (4.70-6.10)
[2022-08-09 09:48] LABS: Anion Gap 15 mmol/L (10-20); BUN (Urea Nitrogen) 60 mg/dL (8.4-25.7); Calc. Creatinine Clearance 14 mL/min (70-130); Calcium 7.9 mg/dL (7.8-10.44); Carbon Dioxide 15 mmol/L (23-31); Chloride 115 mmol/L (98-107); Estimated GFR 8; Glucose 73 mg/dL (80-115); Potassium 4.2 mmol/L (3.5-5.1); Sodium 141 mmol/L (136-145)
[2022-08-09] MEDS: Sodium Bicarbonate 50 MEQ in Dextrose 5 %-0.45 % NaCl 1,000 ML IV SCH (10:29)
[2022-08-09] MEDS: Lorazepam 2 MG/ML VIAL SLOW IVP PRN (11:51)
[2022-08-09] MEDS: Heparin 5,000 UNITS/ML VIAL SC SCH ×2 (15:14→21:38)
[2022-08-09] MEDS: Pantoprazole 40 MG VIAL IVP SCH (20:54)
[2022-08-09] MEDS: Atorvastatin Calcium 40 MG TAB PO SCH (21:07)
[2022-08-10] MEDS: Sodium Bicarbonate 50 MEQ in Dextrose 5 %-0.45 % NaCl 1,000 ML IV SCH (01:14)
[2022-08-10 04:11] LABS: #Eosinphils 0.1 thou/uL (0.0-0.7); #Lymphocytes 0.9 thou/uL (1.20-3.40); #Neutrophils 7.1 thou/uL (1.40-6.50); %Basophils 0.4 % (0.0-1.0); %Eosinophils 1.1 % (0.0-10.0); %Lymphocytes 9.5 % (21.0-51.0); %Monocytes 10.7 % (0.0-10.0); %Neutrophils 78.3 % (42.0-75.0); Mean Corpuscular Hemoglobin 25.4 pg (27.0-31.0); Mean Corpuscular Volume 81.9 fl (78.0-98.0); Mean Platelet Volume 10.1 fL (7.4-10.4); Platelet Count 216 10x3/uL (130-400); RBC Distribution Width 19.7 % (11.5-14.5); Red Blood Cell (RBC) Count 4.72 mill/uL (4.70-6.10); White Blood Cell (WBC) Count 9.1 10x3/uL (4.8-10.8)
[2022-08-10 04:33] LABS: ALT (SGPT) 8 U/L (8-55); AST (SGOT) 12 U/L (5-34); Albumin 1.9 g/dL (3.4-4.8); Alkaline Phosphatase 85 U/L (40-110); Anion Gap 16 mmol/L (10-20); BUN (Urea Nitrogen) 59 mg/dL (8.4-25.7); Bilirubin, Total 0.3 mg/dL (0.2-1.2); Calc. Creatinine Clearance 13 mL/min (70-130); Calcium 8.2 mg/dL (7.8-10.44); Carbon Dioxide 16 mmol/L (23-31); Chloride 112 mmol/L (98-107); Estimated GFR 7; Globulin 3.1 g/dL (2.4-3.5); Glucose 141 mg/dL (80-115); Potassium 4.1 mmol/L (3.5-5.1); Sodium 140 mmol/L (136-145)
[2022-08-10] MEDS: Propofol 1,000 MG/100 ML VIAL IV PRN ×3 (05:20→22:53)
[2022-08-10] MEDS: Sodium Bicarbonate Tab 325 MG TAB PO SCH ×3 (08:17→21:20)
[2022-08-10] MEDS: Ferrous Sulfate 325 MG TAB PO SCH ×2 (08:17→16:35)
[2022-08-10] MEDS: Aspirin Chewable 81 MG TAB PER TUBE SCH (08:17)
[2022-08-10] MEDS: Carvedilol 25 MG TAB PO SCH ×2 (08:17→21:20)
[2022-08-10] MEDS: Heparin 5,000 UNITS/ML VIAL SC SCH ×3 (08:24→21:22)
[2022-08-10] MEDS ORDERED: Lansoprazole 15 MG/5 ML (BATCHED)UDCUP PER TUBE SCH (09:00)
[2022-08-10] MEDS ORDERED: Heparin 10,000 UNITS/ 10 ML VIAL ONE (09:03)
[2022-08-10] MEDS: Sodium Bicarbonate 150 MEQ in Dextrose 5% in Water 1,000 ML IV SCH (09:52)
[2022-08-10] MEDS: Pantoprazole 40 MG VIAL IVP SCH (09:52)
[2022-08-10] MEDS ORDERED: niCARdipine 25 MG in Sodium Chloride 0.9% 250 ML 250 ML IVPB PRN (10:05)
[2022-08-10] MEDS ORDERED: hydrALAZINE 20 MG/ML VIAL SLOW IVP PRN (10:05)
[2022-08-10] MEDS ORDERED: Labetalol HCl 100 MG/20 ML VIAL SLOW IVP PRN (10:05)
[2022-08-10] MEDS: Albumin 25% 25 GM/100 ML BOT IVPB SCH ×3 (12:34→23:28)
[2022-08-10] MEDS ORDERED: Scopolamine 1.5 mg/72 hour Patch TD SCH (16:45)
[2022-08-10 16:51] LABS: HBSAg Index 0.26 S/CO (0-0.99); Hep B Core Total Ab Non-Reactive (NonReactive); Hep B Core Total Index 0.07 S/CO (0-0.79); Hep B Surf Ag Non-Reactive S/CO (NonReactive)
[2022-08-10 16:52] LABS: HBSAB Concentration Less than 8.00 mIU/mL; Hep B Surf AB Non-Reactive (NonReactive); Hep C IgG Ab Non-Reactive (NonReactive); Hep C Index 0.28 S/CO (0-0.79)
[2022-08-10] MEDS: Atorvastatin Calcium 40 MG TAB PO SCH (21:20)
[2022-08-11] MEDS: Sodium Bicarbonate 150 MEQ in Dextrose 5% in Water 1,000 ML IV SCH (00:41)
[2022-08-11 04:57] LABS: Cardiac Risk 6.1 (Less than 4.5)
[2022-08-11] MEDS: Propofol 1,000 MG/100 ML VIAL IV PRN (06:06)
[2022-08-11] MEDS: Albumin 25% 25 GM/100 ML BOT IVPB SCH (06:06)
[2022-08-11 07:29] LABS: #Eosinphils 0.3 thou/uL (0.0-0.7); #Lymphocytes 0.9 thou/uL (1.20-3.40); #Monocytes 0.8 thou/uL (0.11-0.59); #Neutrophils 4.5 thou/uL (1.40-6.50); %Basophils 0.3 % (0.0-1.0); %Eosinophils 4.4 % (0.0-10.0); %Lymphocytes 13.9 % (21.0-51.0); %Monocytes 11.9 % (0.0-10.0); %Neutrophils 69.5 % (42.0-75.0); Hemoglobin 8.8 g/dL (14.0-18.0); Mean Corpuscular Volume 80.6 fl (78.0-98.0); Mean Platelet Volume 10.8 fL (7.4-10.4); Platelet Count 156 10x3/uL (130-400); RBC Distribution Width 19.5 % (11.5-14.5); Red Blood Cell (RBC) Count 3.52 mill/uL (4.70-6.10); White Blood Cell (WBC) Count 6.5 10x3/uL (4.8-10.8)
[2022-08-11] MEDS: Sodium Bicarbonate Tab 325 MG TAB PO SCH ×3 (07:44→20:21)
[2022-08-11] MEDS: Carvedilol 25 MG TAB PO SCH ×2 (07:44→20:20)
[2022-08-11] MEDS: Pantoprazole 40 MG VIAL IVP SCH (07:44)
[2022-08-11] MEDS: Aspirin Chewable 81 MG TAB PER TUBE SCH (07:44)
[2022-08-11] MEDS: Heparin 5,000 UNITS/ML VIAL SC SCH ×3 (07:44→20:23)
[2022-08-11] MEDS: Ferrous Sulfate 325 MG TAB PO SCH ×2 (07:44→16:33)
[2022-08-11 07:49] LABS: ALT (SGPT) Less than 7 U/L (8-55); AST (SGOT) 14 U/L (5-34); Albumin 2.5 g/dL (3.4-4.8); Alkaline Phosphatase 58 U/L (40-110); Anion Gap 15 mmol/L (10-20); BUN (Urea Nitrogen) 49 mg/dL (8.4-25.7); Bilirubin, Total 0.4 mg/dL (0.2-1.2); Calc. Creatinine Clearance 15 mL/min (70-130); Carbon Dioxide 21 mmol/L (23-31); Chloride 110 mmol/L (98-107); Estimated GFR 9; Globulin 2.2 g/dL (2.4-3.5); Glucose 110 mg/dL (80-115); Potassium 3.7 mmol/L (3.5-5.1); Protein, Total 4.7 g/dL (5.8-8.1); Sodium 142 mmol/L (136-145)
[2022-08-11] MEDS: Scopolamine 1.5 mg/72 hour Patch TD SCH (08:58)
[2022-08-11] MEDS ORDERED: Heparin 10,000 UNITS/ 10 ML VIAL ONE (13:59)
[2022-08-11] MEDS ORDERED: Rocuronium Bromide 50 MG/5 ML VIAL IVP SCH (19:45)
[2022-08-11] MEDS: Atorvastatin Calcium 40 MG TAB PO SCH (20:20)
[2022-08-11] MEDS ORDERED: hydrALAZINE 20 MG/ML VIAL ONE (20:23)
[2022-08-12] MEDS: Propofol 1,000 MG/100 ML VIAL IV PRN ×4 (00:01→21:37)
[2022-08-12] MEDS: Carvedilol 25 MG TAB PO SCH ×2 (08:14→19:30)
[2022-08-12] MEDS: Sodium Bicarbonate Tab 325 MG TAB PO SCH ×3 (08:14→19:31)
[2022-08-12] MEDS: Pantoprazole 40 MG VIAL IVP SCH (08:14)
[2022-08-12] MEDS: Heparin 5,000 UNITS/ML VIAL SC SCH ×3 (08:14→20:34)
[2022-08-12] MEDS: Aspirin Chewable 81 MG TAB PER TUBE SCH (08:14)
[2022-08-12] MEDS: Ferrous Sulfate 325 MG TAB PO SCH ×2 (08:14→16:17)
[2022-08-12] MEDS ORDERED: Aspirin 300 MG Suppository PR SCH (09:00)
[2022-08-12 10:18] LABS: Phosphorus 5.2 mg/dL (2.3-4.7)
[2022-08-12 10:21] LABS: ALT (SGPT) 7 U/L (8-55); AST (SGOT) 16 U/L (5-34); Albumin 2.4 g/dL (3.4-4.8); Alkaline Phosphatase 82 U/L (40-110); Anion Gap 14 mmol/L (10-20); BUN (Urea Nitrogen) 37 mg/dL (8.4-25.7); Bilirubin, Total 0.6 mg/dL (0.2-1.2); Calc. Creatinine Clearance 17 mL/min (70-130); Calcium 8.5 mg/dL (7.8-10.44); Carbon Dioxide 22 mmol/L (23-31); Chloride 108 mmol/L (98-107); Estimated GFR 10; Globulin 2.8 g/dL (2.4-3.5); Glucose 89 mg/dL (80-115); Magnesium 1.6 mg/dL (1.6-2.6); Potassium 3.7 mmol/L (3.5-5.1); Protein, Total 5.2 g/dL (5.8-8.1); Sodium 140 mmol/L (136-145)
[2022-08-12] MEDS ORDERED: Multivitamins, Adult 10 ML, TRACE ELEMENT CONCENTRATE 1 ML in D15W-AA 5% with Lytes 2,0... IV SCH (14:00)
[2022-08-12] MEDS ORDERED: Heparin 10,000 UNITS/ 10 ML VIAL ONE (14:02)
[2022-08-12] MEDS: Atorvastatin Calcium 40 MG TAB PO SCH (19:30)
[2022-08-12] MEDS ORDERED: Dextrose 50% Abboject 50 ML SYRINGE SLOW IVP PRN (22:04)
[2022-08-13] MEDS: Propofol 1,000 MG/100 ML VIAL IV PRN ×4 (03:01→18:29)
[2022-08-13 03:49] LABS: #Eosinphils 0.4 thou/uL (0.0-0.7); #Monocytes 0.9 thou/uL (0.11-0.59); #Neutrophils 5.2 thou/uL (1.40-6.50); %Basophils 0.5 % (0.0-1.0); %Eosinophils 4.8 % (0.0-10.0); %Monocytes 12.6 % (0.0-10.0); %Neutrophils 69.1 % (42.0-75.0); Hemoglobin 10.2 g/dL (14.0-18.0); Mean Corpuscular HGB CONC 30.9 g/dL (32.0-36.0); Mean Corpuscular Hemoglobin 25.6 pg (27.0-31.0); Mean Corpuscular Volume 82.8 fl (78.0-98.0); Mean Platelet Volume 10.2 fL (7.4-10.4); Platelet Count 176 10x3/uL (130-400); RBC Distribution Width 19.1 % (11.5-14.5); Red Blood Cell (RBC) Count 3.99 mill/uL (4.70-6.10); White Blood Cell (WBC) Count 7.5 10x3/uL (4.8-10.8)
[2022-08-13 04:11] LABS: Anion Gap 14 mmol/L (10-20); BUN (Urea Nitrogen) 25 mg/dL (8.4-25.7); Calc. Creatinine Clearance 22 mL/min (70-130); Calcium 8.3 mg/dL (7.8-10.44); Carbon Dioxide 24 mmol/L (23-31); Chloride 106 mmol/L (98-107); Estimated GFR 14; Glucose 81 mg/dL (80-115); Potassium 3.6 mmol/L (3.5-5.1); Sodium 140 mmol/L (136-145)
[2022-08-13] MEDS: Heparin 5,000 UNITS/ML VIAL SC SCH ×3 (08:11→20:48)
[2022-08-13] MEDS: Pantoprazole 40 MG VIAL IVP SCH (08:11)
[2022-08-13 08:21] LABS: Actual Bicarbonate (HCO3a) 22.7 mEq/L (22-28); Base Excess (BEa) -1.8 mEq/L (-2.0 to +3.0); Calcium, Ionized (arterial) 1.09 mmol/L (1.12-1.30); Carboxyhemoglobin (COHb) 0.9 gm% (0.0-3.0); O2 Tension (PaO2), arterial 138.9 mmHg (> 80.0); pH, Arterial 7.39 (7.35-7.45)
[2022-08-13 08:22] LABS: Puncture Site RRA
[2022-08-13] MEDS: Ferrous Sulfate 325 MG TAB PO SCH (09:30)
[2022-08-13] MEDS: Aspirin Chewable 81 MG TAB PER TUBE SCH (10:27)
[2022-08-13] MEDS: Carvedilol 25 MG TAB PO SCH ×2 (10:28→20:48)
[2022-08-13] MEDS: Sodium Bicarbonate Tab 325 MG TAB PO SCH (10:28)
[2022-08-13] MEDS: Lorazepam 2 MG/ML VIAL SLOW IVP PRN (12:14)
[2022-08-13] MEDS ORDERED: Heparin 10,000 UNITS/ 10 ML VIAL ONE (13:47)
[2022-08-13] MEDS: Atorvastatin Calcium 40 MG TAB PO SCH (20:48)
[2022-08-14] MEDS: Propofol 1,000 MG/100 ML VIAL IV PRN ×2 (01:45→21:15)
[2022-08-14 04:14] LABS: #Eosinphils 0.4 thou/uL (0.0-0.7); #Neutrophils 5.4 thou/uL (1.40-6.50); %Basophils 0.4 % (0.0-1.0); %Eosinophils 4.7 % (0.0-10.0); %Lymphocytes 12.3 % (21.0-51.0); %Monocytes 12.9 % (0.0-10.0); %Neutrophils 69.8 % (42.0-75.0); Hemoglobin 10.1 g/dL (14.0-18.0); Mean Corpuscular HGB CONC 30.9 g/dL (32.0-36.0); Mean Corpuscular Hemoglobin 25.4 pg (27.0-31.0); Mean Corpuscular Volume 82.3 fl (78.0-98.0); Mean Platelet Volume 10.6 fL (7.4-10.4); Platelet Count 165 10x3/uL (130-400); RBC Distribution Width 18.7 % (11.5-14.5); Red Blood Cell (RBC) Count 3.96 mill/uL (4.70-6.10); White Blood Cell (WBC) Count 7.7 10x3/uL (4.8-10.8)
[2022-08-14 04:40] LABS: Anion Gap 13 mmol/L (10-20); BUN (Urea Nitrogen) 15 mg/dL (8.4-25.7); Calc. Creatinine Clearance 28 mL/min (70-130); Calcium 8.1 mg/dL (7.8-10.44); Carbon Dioxide 26 mmol/L (23-31); Chloride 102 mmol/L (98-107); Estimated GFR 19; Glucose 123 mg/dL (80-115); Potassium 3.6 mmol/L (3.5-5.1); Sodium 137 mmol/L (136-145)
[2022-08-14 07:05] LABS: Actual Bicarbonate (HCO3a) 27.5 mEq/L (22-28); Base Excess (BEa) 3.9 mEq/L (-2.0 to +3.0); CO2 Tension 37.7 mmHg (35.0-45.0); Carboxyhemoglobin (COHb) 0.6 gm% (0.0-3.0); Hemoglobin (Hb) 10.6 g/dL (14.0-18.0); O2 Tension (PaO2), arterial 90.3 mmHg (> 80.0); Potassium - ABG Lab 3.42 mmol/L (3.70-5.30); pH, Arterial 7.48 (7.35-7.45)
[2022-08-14 07:35] LABS: Puncture Site RRA
[2022-08-14 07:36] LABS: ALV-art Gradient 62.215 mmHg (0-20)
[2022-08-14] MEDS: Heparin 5,000 UNITS/ML VIAL SC SCH ×3 (08:16→21:32)
[2022-08-14] MEDS: Pantoprazole 40 MG VIAL IVP SCH (08:16)
[2022-08-14] MEDS: Aspirin 300 MG Suppository PR SCH (08:17)
[2022-08-14] MEDS: Scopolamine 1.5 mg/72 hour Patch TD SCH (08:17)
[2022-08-14] MEDS: Carvedilol 25 MG TAB PO SCH ×2 (08:17→21:32)
[2022-08-14] MEDS: Aspirin Chewable 81 MG TAB PER TUBE SCH (08:17)
[2022-08-14] MEDS: Glycopyrrolate 1 MG TAB PO SCH ×2 (08:31→21:33)
[2022-08-14] MEDS: EPOETIN ALFA-EPBX (ESRD) 10,000 UNIT/ML VIAL SC SCH (13:39)
[2022-08-14] MEDS: Atorvastatin Calcium 40 MG TAB PO SCH (21:32)
[2022-08-15 04:15] LABS: #Eosinphils 0.3 thou/uL (0.0-0.7); #Lymphocytes 0.9 thou/uL (1.20-3.40); #Neutrophils 5.6 thou/uL (1.40-6.50); %Basophils 0.4 % (0.0-1.0); %Eosinophils 3.9 % (0.0-10.0); %Lymphocytes 11.8 % (21.0-51.0); %Neutrophils 70.8 % (42.0-75.0); Hemoglobin 9.4 g/dL (14.0-18.0); Mean Corpuscular HGB CONC 30.4 g/dL (32.0-36.0); Mean Corpuscular Hemoglobin 25.1 pg (27.0-31.0); Mean Corpuscular Volume 82.6 fl (78.0-98.0); Mean Platelet Volume 11.5 fL (7.4-10.4); Platelet Count 151 10x3/uL (130-400); RBC Distribution Width 18.3 % (11.5-14.5); Red Blood Cell (RBC) Count 3.76 mill/uL (4.70-6.10); White Blood Cell (WBC) Count 7.9 10x3/uL (4.8-10.8)
[2022-08-15 04:32] LABS: Anion Gap 15 mmol/L (10-20); BUN (Urea Nitrogen) 22 mg/dL (8.4-25.7); Calc. Creatinine Clearance 21 mL/min (70-130); Calcium 8.1 mg/dL (7.8-10.44); Carbon Dioxide 25 mmol/L (23-31); Chloride 102 mmol/L (98-107); Estimated GFR 14; Glucose 101 mg/dL (80-115); Potassium 3.6 mmol/L (3.5-5.1); Sodium 138 mmol/L (136-145)
[2022-08-15] MEDS ORDERED: Lidocaine 1% w/Epinephrine 1:100K 20 ML VIAL FS SCH (06:00)
[2022-08-15] MEDS ORDERED: Vecuronium 10 MG VIAL IV SCH (06:00)
[2022-08-15] MEDS ORDERED: Fentanyl 100 MCG/2 ML VIAL SLOW IVP SCH (06:00)
[2022-08-15] MEDS ORDERED: Midazolam HCl 5 mg/5 ml Vial SLOW IVP SCH (06:00)
[2022-08-15 06:46] LABS: Actual Bicarbonate (HCO3a) 26.1 mEq/L (22-28); Base Excess (BEa) 2.3 mEq/L (-2.0 to +3.0); CO2 Tension 37.5 mmHg (35.0-45.0); Calcium, Ionized (arterial) 1.11 mmol/L (1.12-1.30); Carboxyhemoglobin (COHb) 0.3 gm% (0.0-3.0); Hemoglobin (Hb) 10.8 g/dL (14.0-18.0); O2 Tension (PaO2), arterial 92.7 mmHg (> 80.0); Potassium - ABG Lab 3.45 mmol/L (3.70-5.30); pH, Arterial 7.46 (7.35-7.45)
[2022-08-15 07:06] LABS: ALV-art Gradient 60.065 mmHg (0-20); Puncture Site RRA
[2022-08-15] MEDS: Propofol 1,000 MG/100 ML VIAL IV PRN (07:54)
[2022-08-15] MEDS: Glycopyrrolate 1 MG TAB PO SCH ×2 (08:58→21:04)
[2022-08-15] MEDS: Aspirin Chewable 81 MG TAB PER TUBE SCH (09:51)
[2022-08-15] MEDS: Heparin 5,000 UNITS/ML VIAL SC SCH ×3 (09:51→21:04)
[2022-08-15] MEDS: Pantoprazole 40 MG VIAL IVP SCH (09:51)
[2022-08-15] MEDS: Aspirin 300 MG Suppository PR SCH (09:51)
[2022-08-15] MEDS: Carvedilol 25 MG TAB PO SCH ×2 (09:53→21:04)
[2022-08-15] MEDS: Fentanyl 100 MCG/2 ML VIAL SLOW IVP SCH ×2 (10:12→10:13)
[2022-08-15] MEDS: Atorvastatin Calcium 40 MG TAB PO SCH (21:04)
[2022-08-16] MEDS: Propofol 1,000 MG/100 ML VIAL IV PRN (02:14)
[2022-08-16 04:26] LABS: #Eosinphils 0.2 thou/uL (0.0-0.7); #Lymphocytes 0.7 thou/uL (1.20-3.40); #Monocytes 0.7 thou/uL (0.11-0.59); #Neutrophils 6.9 thou/uL (1.40-6.50); %Basophils 0.2 % (0.0-1.0); %Eosinophils 1.8 % (0.0-10.0); %Lymphocytes 8.6 % (21.0-51.0); %Monocytes 8.6 % (0.0-10.0); %Neutrophils 80.8 % (42.0-75.0); Hemoglobin 10.2 g/dL (14.0-18.0); Mean Corpuscular HGB CONC 30.8 g/dL (32.0-36.0); Mean Corpuscular Hemoglobin 25.6 pg (27.0-31.0); Mean Corpuscular Volume 83.2 fl (78.0-98.0); Mean Platelet Volume 10.2 fL (7.4-10.4); Platelet Count 184 10x3/uL (130-400); RBC Distribution Width 18.1 % (11.5-14.5); Red Blood Cell (RBC) Count 3.98 mill/uL (4.70-6.10); White Blood Cell (WBC) Count 8.6 10x3/uL (4.8-10.8)
[2022-08-16 04:56] LABS: Anion Gap 19 mmol/L (10-20); BUN (Urea Nitrogen) 29 mg/dL (8.4-25.7); Calc. Creatinine Clearance 18 mL/min (70-130); Calcium 8.6 mg/dL (7.8-10.44); Carbon Dioxide 21 mmol/L (23-31); Chloride 102 mmol/L (98-107); Estimated GFR 12; Glucose 88 mg/dL (80-115); Potassium 3.7 mmol/L (3.5-5.1); Sodium 138 mmol/L (136-145)
[2022-08-16 07:33] LABS: Actual Bicarbonate (HCO3a) 22.2 mEq/L (22-28); Analyzer IN Cardio OR; Base Excess (BEa) -1.2 mEq/L (-2.0 to +3.0); CO2 Tension 32.6 mmHg (35.0-45.0); Calcium, Ionized (arterial) 1.11 mmol/L (1.12-1.30); Carboxyhemoglobin (COHb) 1.8 gm% (0.0-3.0); Hemoglobin (Hb) 11.4 g/dL (14.0-18.0); O2 Tension (PaO2), arterial 68.2 mmHg (> 80.0); Potassium - ABG Lab 3.68 mmol/L (3.70-5.30); pH, Arterial 7.45 (7.35-7.45)
[2022-08-16 08:10] LABS: Puncture Site RRA
[2022-08-16] MEDS ORDERED: Heparin 10,000 UNITS/ 10 ML VIAL ONE (08:28)
[2022-08-16] MEDS: Pantoprazole 40 MG VIAL IVP SCH (09:17)
[2022-08-16] MEDS: Aspirin Chewable 81 MG TAB PER TUBE SCH (09:17)
[2022-08-16] MEDS: Heparin 5,000 UNITS/ML VIAL SC SCH ×3 (09:17→21:14)
[2022-08-16] MEDS: Carvedilol 25 MG TAB PO SCH ×2 (09:17→23:14)
[2022-08-16] MEDS: Glycopyrrolate 1 MG TAB PO SCH ×2 (09:18→21:14)
[2022-08-16] MEDS ORDERED: Albumin 25% 25 GM/100 ML BOT IVPB SCH (10:00)
[2022-08-16] MEDS: Aspirin 300 MG Suppository PR SCH (11:05)
[2022-08-16] MEDS: Lansoprazole 15 MG/5 ML (BATCHED)UDCUP PER TUBE SCH (13:07)
[2022-08-16] MEDS ORDERED: CEFAZOLIN 2 GM in Sodium Chloride 0.9% 100 ML IVPB SCH (14:15)
[2022-08-16] MEDS: Atorvastatin Calcium 40 MG TAB PO SCH (21:14)
[2022-08-17] MEDS: Propofol 1,000 MG/100 ML VIAL IV PRN (04:03)
[2022-08-17 04:41] LABS: Hemoglobin 9.6 g/dL (14.0-18.0); Mean Corpuscular HGB CONC 30.5 g/dL (32.0-36.0); Mean Corpuscular Hemoglobin 25.1 pg (27.0-31.0); Mean Corpuscular Volume 82.4 fl (78.0-98.0); Mean Platelet Volume 10.6 fL (7.4-10.4); Platelet Count 174 10x3/uL (130-400); Red Blood Cell (RBC) Count 3.82 mill/uL (4.70-6.10); White Blood Cell (WBC) Count 9.8 10x3/uL (4.8-10.8)
[2022-08-17 04:58] LABS: Anion Gap 15 mmol/L (10-20); BUN (Urea Nitrogen) 20 mg/dL (8.4-25.7); Calc. Creatinine Clearance 23 mL/min (70-130); Calcium 8.5 mg/dL (7.8-10.44); Carbon Dioxide 26 mmol/L (23-31); Chloride 100 mmol/L (98-107); Estimated GFR 16; Glucose 111 mg/dL (80-115); Potassium 3.5 mmol/L (3.5-5.1); Sodium 137 mmol/L (136-145)
[2022-08-17 05:25] LABS: Anisocytosis SLIGHT = 6-15 cells (100X) (0-5/hpf); Band 19 % (5-11); Eosinophils 1 % (0-10); Hypochromia SLIGHT = 6-15 cells (100X) (0-5/hpf); Lymphocytes 9 % (21-51); MDiff Complete? YES; Monocytes 3 % (0-10); Neutrophil 68 % (42-75); Platelet Morphology Comment Appears Adequate
[2022-08-17 08:19] LABS: Actual Bicarbonate (HCO3a) 27.9 mEq/L (22-28); Analyzer IN Cardio ER; Base Excess (BEa) 3.8 mEq/L (-2.0 to +3.0); CO2 Tension 39.7 mmHg (35.0-45.0); Calcium, Ionized (arterial) 1.13 mmol/L (1.12-1.30); Carboxyhemoglobin (COHb) 0.7 gm% (0.0-3.0); Hemoglobin (Hb) 10.6 g/dL (14.0-18.0); O2 Tension (PaO2), arterial 65.4 mmHg (> 80.0); Potassium - ABG Lab 3.37 mmol/L (3.70-5.30); pH, Arterial 7.46 (7.35-7.45)
[2022-08-17 08:23] LABS: ALV-art Gradient 84.615 mmHg (0-20); Puncture Site LRA
[2022-08-17] MEDS ORDERED: Vancomycin Diaylsis Sliding Scale (Wt 71-99) FS SCH (09:45)
[2022-08-17] MEDS ORDERED: cloNIDine 0.1mg/24 Hour PATCH TD SCH (09:45)
[2022-08-17] MEDS ORDERED: hydrALAZINE 20 MG/ML VIAL SLOW IVP PRN (09:45)
[2022-08-17] MEDS ORDERED: Vancomycin 1.5 GRAM/300 ML BAG 1.5 GM in Premix Bag 1 BAG IVPB SCH (10:00)
[2022-08-17] MEDS ORDERED: VANCOMYCIN 1.25 GM/250 ML BAG 1.25 GM in Premix Bag 1 BAG IVPB SCH (10:00)
[2022-08-17] MEDS ORDERED: Heparin 10,000 UNITS/ 10 ML VIAL ONE (15:11)
[2022-08-17] MEDS ORDERED: Lidocaine 2% PF 5 ML VIAL ONE ×2 (15:11→15:57)
[2022-08-17] MEDS ORDERED: Bupivacaine HCl 0.5%/Epinephrine 1:200,000/PF 30 ml Vial ONE (15:11)
[2022-08-17] MEDS ORDERED: Midazolam HCl 2 mg/2 ml Vial ONE (15:14)
[2022-08-17] MEDS ORDERED: Rocuronium Bromide 10 MG/ML (10ML VIAL) ONE (15:25)
[2022-08-17] MEDS ORDERED: ePHEDrine 50 MG/ML VIAL ONE (15:25)
[2022-08-17] MEDS: Glycopyrrolate 1 MG TAB PO SCH ×2 (17:01→21:19)
[2022-08-17] MEDS: Carvedilol 25 MG TAB PO SCH ×2 (17:01→21:19)
[2022-08-17] MEDS: Scopolamine 1.5 mg/72 hour Patch TD SCH (17:01)
[2022-08-17] MEDS: Heparin 5,000 UNITS/ML VIAL SC SCH ×3 (17:01→21:20)
[2022-08-17] MEDS: Aspirin Chewable 81 MG TAB PER TUBE SCH (17:01)
[2022-08-17] MEDS: Aspirin 300 MG Suppository PR SCH (17:01)
[2022-08-17] MEDS: Lansoprazole 15 MG/5 ML (BATCHED)UDCUP PER TUBE SCH (17:02)
[2022-08-17] MEDS ORDERED: Vancomycin 1 GM in Premix Bag 1 BAG IVPB SCH (21:00)
[2022-08-17] MEDS: Atorvastatin Calcium 40 MG TAB PO SCH (21:19)
[2022-08-18] MEDS: Lorazepam 2 MG/ML VIAL SLOW IVP PRN (01:57)
[2022-08-18 04:37] LABS: Hemoglobin 8.5 g/dL (14.0-18.0); Mean Corpuscular HGB CONC 30.6 g/dL (32.0-36.0); Mean Corpuscular Hemoglobin 25.7 pg (27.0-31.0); Mean Corpuscular Volume 83.8 fl (78.0-98.0); Mean Platelet Volume 9.6 fL (7.4-10.4); Platelet Count 195 10x3/uL (130-400); RBC Distribution Width 17.7 % (11.5-14.5); Red Blood Cell (RBC) Count 3.29 mill/uL (4.70-6.10); White Blood Cell (WBC) Count 7.7 10x3/uL (4.8-10.8)
[2022-08-18 04:52] LABS: Anion Gap 15 mmol/L (10-20); BUN (Urea Nitrogen) 33 mg/dL (8.4-25.7); Calc. Creatinine Clearance 18 mL/min (70-130); Calcium 8.7 mg/dL (7.8-10.44); Carbon Dioxide 26 mmol/L (23-31); Chloride 101 mmol/L (98-107); Estimated GFR 12; Glucose 111 mg/dL (80-115); Potassium 3.7 mmol/L (3.5-5.1); Sodium 138 mmol/L (136-145)
[2022-08-18 05:24] LABS: Band 19 % (5-11); Eosinophils 3 % (0-10); Lymphocytes 11 % (21-51); MDiff Complete? YES; Monocytes 3 % (0-10); Neutrophil 64 % (42-75)
[2022-08-18] MEDS: Glycopyrrolate 1 MG TAB PO SCH ×2 (08:17→20:20)
[2022-08-18] MEDS: Carvedilol 25 MG TAB PO SCH ×2 (08:17→20:20)
[2022-08-18] MEDS: Aspirin Chewable 81 MG TAB PER TUBE SCH (08:17)
[2022-08-18] MEDS: Heparin 5,000 UNITS/ML VIAL SC SCH ×3 (08:18→20:20)
[2022-08-18] MEDS: Aspirin 300 MG Suppository PR SCH (08:18)
[2022-08-18] MEDS: Lansoprazole 15 MG/5 ML (BATCHED)UDCUP PER TUBE SCH (08:18)
[2022-08-18] MEDS ORDERED: Heparin 10,000 UNITS/ 10 ML VIAL ONE (08:50)
[2022-08-18] MEDS ORDERED: Albumin 25% 25 GM/100 ML BOT IVPB SCH (12:00)
[2022-08-18] MEDS: Ipratropium Bromide 2.5 ml Neb NEB SCH ×3 (14:29→23:10)
[2022-08-18] MEDS: clonazePAM 0.5 MG TAB PO PRN (18:03)
[2022-08-18] MEDS: Atorvastatin Calcium 40 MG TAB PO SCH (20:20)
[2022-08-18] MEDS: Acetaminophen 325 MG TAB PO PRN (20:39)
[2022-08-19] MEDS ORDERED: Vancomycin 1 GM in Premix Bag 1 BAG IVPB SCH ×2 (02:30→06:00)
[2022-08-19] MEDS: Acetaminophen 325 MG TAB PO PRN ×2 (02:42→09:59)
[2022-08-19] MEDS ORDERED: Cefepime 1 GM in Sodium Chloride 0.9% 100 ML IVPB SCH (02:45)
[2022-08-19] MEDS ORDERED: Vancomycin Diaylsis Sliding Scale (Wt 71-99) FS SCH (02:45)
[2022-08-19 02:53] LABS: Hemoglobin 8.1 g/dL (14.0-18.0); Mean Corpuscular HGB CONC 30.9 g/dL (32.0-36.0); Mean Corpuscular Hemoglobin 25.6 pg (27.0-31.0); Mean Corpuscular Volume 82.8 fl (78.0-98.0); Mean Platelet Volume 9.7 fL (7.4-10.4); Platelet Count 183 10x3/uL (130-400); RBC Distribution Width 17.5 % (11.5-14.5); Red Blood Cell (RBC) Count 3.15 mill/uL (4.70-6.10); White Blood Cell (WBC) Count 6.8 10x3/uL (4.8-10.8)
[2022-08-19 03:25] LABS: Anion Gap 14 mmol/L (10-20); BUN (Urea Nitrogen) 21 mg/dL (8.4-25.7); Calc. Creatinine Clearance 27 mL/min (70-130); Calcium 8.5 mg/dL (7.8-10.44); Carbon Dioxide 26 mmol/L (23-31); Chloride 101 mmol/L (98-107); Estimated GFR 19; Glucose 117 mg/dL (80-115); Magnesium 1.6 mg/dL (1.6-2.6); Potassium 3.5 mmol/L (3.5-5.1); Sodium 137 mmol/L (136-145)
[2022-08-19] MEDS ORDERED: Magnesium 2 GM/50 ML(in water) 2 GM in Premix Bag 1 BAG IVPB SCH (03:45)
[2022-08-19 03:51] LABS: Vancomycin, Random 13.6 ug/mL (See Comment)
[2022-08-19 03:59] LABS: Anisocytosis SLIGHT = 6-15 cells (100X) (0-5/hpf); Band 5 % (5-11); Eosinophils 3 % (0-10); Lymphocytes 10 % (21-51); MDiff Complete? YES; Monocytes 7 % (0-10); Neutrophil 75 % (42-75); Platelet Morphology Comment Appears Adequate; Polychromasia SLIGHT = 2-3 cells (100X) (0-2/hpf)
[2022-08-19] MEDS: Ipratropium Bromide 2.5 ml Neb NEB SCH ×4 (07:42→23:27)
[2022-08-19] MEDS: Glycopyrrolate 1 MG TAB PO SCH ×2 (09:59→20:30)
[2022-08-19] MEDS: Carvedilol 25 MG TAB PO SCH (09:59)
[2022-08-19] MEDS: Heparin 5,000 UNITS/ML VIAL SC SCH ×3 (09:59→20:30)
[2022-08-19] MEDS: Aspirin Chewable 81 MG TAB PER TUBE SCH (09:59)
[2022-08-19] MEDS: Aspirin 300 MG Suppository PR SCH (10:54)
[2022-08-19] MEDS: Lansoprazole 15 MG/5 ML (BATCHED)UDCUP PER TUBE SCH (13:05)
[2022-08-19] MEDS: Atorvastatin Calcium 40 MG TAB PO SCH (20:29)
[2022-08-20] MEDS: clonazePAM 0.5 MG TAB PO PRN (01:16)
[2022-08-20] MEDS ORDERED: Cefepime 0.5 GM in Sodium Chloride 0.9% 100 ML IVPB SCH (02:00)
[2022-08-20 02:56] LABS: #Eosinphils 0.2 thou/uL (0.0-0.7); #Lymphocytes 0.6 thou/uL (1.20-3.40); #Monocytes 0.9 thou/uL (0.11-0.59); %Basophils 0.4 % (0.0-1.0); %Eosinophils 3.3 % (0.0-10.0); %Lymphocytes 9.4 % (21.0-51.0); %Monocytes 13.5 % (0.0-10.0); %Neutrophils 73.4 % (42.0-75.0); Hemoglobin 7.9 g/dL (14.0-18.0); Mean Corpuscular HGB CONC 30.3 g/dL (32.0-36.0); Mean Corpuscular Hemoglobin 25.4 pg (27.0-31.0); Mean Platelet Volume 9.9 fL (7.4-10.4); Platelet Count 201 10x3/uL (130-400); RBC Distribution Width 17.8 % (11.5-14.5); White Blood Cell (WBC) Count 6.8 10x3/uL (4.8-10.8)
[2022-08-20 03:28] LABS: Anion Gap 14 mmol/L (10-20); BUN (Urea Nitrogen) 32 mg/dL (8.4-25.7); Calc. Creatinine Clearance 21 mL/min (70-130); Calcium 8.2 mg/dL (7.8-10.44); Carbon Dioxide 27 mmol/L (23-31); Chloride 97 mmol/L (98-107); Estimated GFR 14; Glucose 130 mg/dL (80-115); Magnesium 2.1 mg/dL (1.6-2.6); Potassium 3.6 mmol/L (3.5-5.1); Sodium 134 mmol/L (136-145)
[2022-08-20] MEDS: Ipratropium Bromide 2.5 ml Neb NEB SCH ×4 (07:44→23:20)
[2022-08-20 08:37] LABS: Vancomycin, Random 22.9 ug/mL (See Comment)
[2022-08-20] MEDS ORDERED: Cefepime 0.5 GM, Admixture Fee 1 EACH in Sodium Chloride 0.9% 100 ML IVPB SCH (08:45)
[2022-08-20] MEDS: Aspirin Chewable 81 MG TAB PER TUBE SCH (09:30)
[2022-08-20] MEDS: Heparin 5,000 UNITS/ML VIAL SC SCH ×3 (09:30→21:06)
[2022-08-20] MEDS: Glycopyrrolate 1 MG TAB PO SCH ×2 (09:30→21:06)
[2022-08-20] MEDS: Aspirin 300 MG Suppository PR SCH (09:34)
[2022-08-20] MEDS: Carvedilol 3.125 MG TAB PO SCH ×2 (09:34→16:45)
[2022-08-20] MEDS ORDERED: Heparin 10,000 UNITS/ 10 ML VIAL ONE (10:17)
[2022-08-20] MEDS: Lansoprazole 15 MG/5 ML (BATCHED)UDCUP PER TUBE SCH (11:12)
[2022-08-20] MEDS ORDERED: Albumin 25% 25 GM/100 ML BOT IVPB SCH ×2 (11:45→12:30)
[2022-08-20] MEDS ORDERED: Vancomycin 250 MG in Sodium Chloride 0.9% 100 ML IVPB SCH (17:00)
[2022-08-20] MEDS: Atorvastatin Calcium 40 MG TAB PER TUBE SCH (21:06)
[2022-08-21] MEDS: Cefepime 0.5 GM, Admixture Fee 1 EACH in Sodium Chloride 0.9% 100 ML IVPB SCH (02:56)
[2022-08-21 04:09] LABS: Anion Gap 10 mmol/L (10-20); BUN (Urea Nitrogen) 20 mg/dL (8.4-25.7); Calc. Creatinine Clearance 29 mL/min (70-130); Calcium 8.2 mg/dL (7.8-10.44); Carbon Dioxide 30 mmol/L (23-31); Chloride 97 mmol/L (98-107); Estimated GFR 21; Glucose 129 mg/dL (80-115); Magnesium 1.8 mg/dL (1.6-2.6); Potassium 3.4 mmol/L (3.5-5.1); Sodium 134 mmol/L (136-145)
[2022-08-21 04:22] LABS: Band 10 % (5-11); Eosinophils 5 % (0-10); Hemoglobin 7.2 g/dL (14.0-18.0); Hypochromia SLIGHT = 6-15 cells (100X) (0-5/hpf); Lymphocytes 14 % (21-51); MDiff Complete? YES; Mean Corpuscular HGB CONC 29.6 g/dL (32.0-36.0); Mean Corpuscular Hemoglobin 24.8 pg (27.0-31.0); Mean Corpuscular Volume 83.8 fl (78.0-98.0); Mean Platelet Volume 9.3 fL (7.4-10.4); Monocytes 14 % (0-10); Neutrophil 54 % (42-75); Platelet Count 209 10x3/uL (130-400); Platelet Morphology Comment Appears Adequate; RBC Distribution Width 17.7 % (11.5-14.5); Reactive Lymphocytes 3 % (0-10); Red Blood Cell (RBC) Count 2.88 mill/uL (4.70-6.10); White Blood Cell (WBC) Count 5.6 10x3/uL (4.8-10.8)
[2022-08-21] MEDS: Ipratropium Bromide 2.5 ml Neb NEB SCH ×4 (07:28→23:41)
[2022-08-21] MEDS: Carvedilol 3.125 MG TAB PO SCH ×2 (08:59→16:14)
[2022-08-21] MEDS: Glycopyrrolate 1 MG TAB PO SCH ×2 (08:59→21:56)
[2022-08-21] MEDS: Heparin 5,000 UNITS/ML VIAL SC SCH ×3 (08:59→21:56)
[2022-08-21] MEDS: Aspirin Chewable 81 MG TAB PER TUBE SCH (09:00)
[2022-08-21] MEDS: Aspirin 300 MG Suppository PR SCH (09:00)
[2022-08-21 09:06] LABS: Iron 10 ug/dL (65-175); Iron Binding Capacity, Total 108 mcg/dL (261-462)
[2022-08-21] MEDS: Lansoprazole 15 MG/5 ML (BATCHED)UDCUP PER TUBE SCH (09:14)
[2022-08-21] MEDS: EPOETIN ALFA-EPBX (ESRD) 10,000 UNIT/ML VIAL SC SCH (12:29)
[2022-08-21 12:52] LABS: Anion Gap 13 mmol/L (10-20); BUN (Urea Nitrogen) 25 mg/dL (8.4-25.7); Calc. Creatinine Clearance 25 mL/min (70-130); Calcium 8.2 mg/dL (7.8-10.44); Carbon Dioxide 28 mmol/L (23-31); Chloride 96 mmol/L (98-107); Estimated GFR 18; Glucose 154 mg/dL (80-115); Magnesium 1.9 mg/dL (1.6-2.6); Potassium 3.5 mmol/L (3.5-5.1); Sodium 133 mmol/L (136-145)
[2022-08-21] MEDS ORDERED: Iron, Sodium Ferric Gluconate 250 MG in Sodium Chloride 0.9% 250 ML 250 ML IVPB SCH (17:00)
[2022-08-21] MEDS: Atorvastatin Calcium 40 MG TAB PER TUBE SCH (21:56)
[2022-08-22] MEDS: Cefepime 0.5 GM, Admixture Fee 1 EACH in Sodium Chloride 0.9% 100 ML IVPB SCH (02:52)
[2022-08-22 05:42] LABS: Anion Gap 12 mmol/L (10-20); BUN (Urea Nitrogen) 36 mg/dL (8.4-25.7); Calc. Creatinine Clearance 21 mL/min (70-130); Calcium 8.2 mg/dL (7.8-10.44); Carbon Dioxide 29 mmol/L (23-31); Chloride 96 mmol/L (98-107); Estimated GFR 14; Glucose 141 mg/dL (80-115); Magnesium 1.8 mg/dL (1.6-2.6); Potassium 3.3 mmol/L (3.5-5.1); Sodium 134 mmol/L (136-145)
[2022-08-22 06:16] LABS: Anisocytosis SLIGHT = 6-15 cells (100X) (0-5/hpf); Band 5 % (5-11); Eosinophils 5 % (0-10); Hemoglobin 7.6 g/dL (14.0-18.0); Hypochromia SLIGHT = 6-15 cells (100X) (0-5/hpf); Lymphocytes 8 % (21-51); MDiff Complete? YES; Mean Corpuscular HGB CONC 30.1 g/dL (32.0-36.0); Mean Corpuscular Hemoglobin 25.1 pg (27.0-31.0); Mean Corpuscular Volume 83.4 fl (78.0-98.0); Mean Platelet Volume 9.3 fL (7.4-10.4); Monocytes 13 % (0-10); Neutrophil 69 % (42-75); Platelet Count 279 10x3/uL (130-400); Platelet Morphology Comment Appears Adequate; Polychromasia SLIGHT = 2-3 cells (100X) (0-2/hpf); RBC Distribution Width 17.9 % (11.5-14.5); Red Blood Cell (RBC) Count 3.04 mill/uL (4.70-6.10); Target Cells SLIGHT = 2-5 cells (100X) (0-1/hpf); Tear Drops SLIGHT = 2-5 cells (100X) (0-1/hpf); White Blood Cell (WBC) Count 7.3 10x3/uL (4.8-10.8)
[2022-08-22] MEDS: Ipratropium Bromide 2.5 ml Neb NEB SCH ×4 (07:56→23:00)
[2022-08-22] MEDS ORDERED: Potassium Chloride 20 MEQ in Premix Bag 1 BAG IVPB SCH (08:15)
[2022-08-22] MEDS: Aspirin 300 MG Suppository PR SCH (09:05)
[2022-08-22] MEDS: Lansoprazole 15 MG/5 ML (BATCHED)UDCUP PER TUBE SCH (09:13)
[2022-08-22] MEDS: Aspirin Chewable 81 MG TAB PER TUBE SCH (09:15)
[2022-08-22] MEDS: Carvedilol 3.125 MG TAB PO SCH ×2 (09:15→16:12)
[2022-08-22] MEDS: Glycopyrrolate 1 MG TAB PO SCH ×2 (09:15→21:25)
[2022-08-22] MEDS: Guaifenesin DM 100-10/5 ML UDCUP PER TUBE SCH ×3 (09:17→21:25)
[2022-08-22] MEDS: Heparin 5,000 UNITS/ML VIAL SC SCH ×3 (09:17→21:25)
[2022-08-22] MEDS: Scopolamine 1.5 mg/72 hour Patch TD SCH (09:21)
[2022-08-22] MEDS: Atorvastatin Calcium 40 MG TAB PER TUBE SCH (21:25)
[2022-08-23] MEDS: Cefepime 0.5 GM, Admixture Fee 1 EACH in Sodium Chloride 0.9% 100 ML IVPB SCH (03:00)
[2022-08-23] MEDS: Guaifenesin DM 100-10/5 ML UDCUP PER TUBE SCH ×4 (03:03→21:06)
[2022-08-23 05:15] LABS: Anion Gap 10 mmol/L (10-20); BUN (Urea Nitrogen) 48 mg/dL (8.4-25.7); Calc. Creatinine Clearance 18 mL/min (70-130); Calcium 8.4 mg/dL (7.8-10.44); Carbon Dioxide 28 mmol/L (23-31); Chloride 99 mmol/L (98-107); Estimated GFR 11; Glucose 118 mg/dL (80-115); Magnesium 1.8 mg/dL (1.6-2.6); Potassium 3.6 mmol/L (3.5-5.1); Sodium 133 mmol/L (136-145)
[2022-08-23] MEDS: Ipratropium Bromide 2.5 ml Neb NEB SCH ×3 (07:28→18:41)
[2022-08-23] MEDS: Heparin 5,000 UNITS/ML VIAL SC SCH ×3 (07:40→21:06)
[2022-08-23] MEDS: Carvedilol 3.125 MG TAB PO SCH ×2 (07:41→17:15)
[2022-08-23] MEDS: Aspirin Chewable 81 MG TAB PER TUBE SCH (07:41)
[2022-08-23] MEDS: Aspirin 300 MG Suppository PR SCH (07:41)
[2022-08-23] MEDS ORDERED: Heparin 10,000 UNITS/ 10 ML VIAL ONE (08:22)
[2022-08-23] MEDS: Glycopyrrolate 1 MG TAB PO SCH ×2 (08:24→21:06)
[2022-08-23] MEDS: Lansoprazole 15 MG/5 ML (BATCHED)UDCUP PER TUBE SCH (08:25)
[2022-08-23] MEDS ORDERED: EPOETIN ALFA-EPBX (ESRD) 10,000 UNIT/ML VIAL SC SCH (09:00)
[2022-08-23 10:43] LABS: Vancomycin, Random 16.1 ug/mL (See Comment)
[2022-08-23] MEDS ORDERED: Vancomycin HCl 500 MG in Sodium Chloride 0.9% 100 ML IVPB SCH (17:00)
[2022-08-23] MEDS: Atorvastatin Calcium 40 MG TAB PER TUBE SCH (21:06)
[2022-08-23] MEDS: clonazePAM 0.5 MG TAB PO PRN (22:04)
[2022-08-24] MEDS: Ipratropium Bromide 2.5 ml Neb NEB SCH ×5 (00:18→22:40)
[2022-08-24] MEDS: Cefepime 0.5 GM, Admixture Fee 1 EACH in Sodium Chloride 0.9% 100 ML IVPB SCH (02:56)
[2022-08-24] MEDS: Guaifenesin DM 100-10/5 ML UDCUP PER TUBE SCH ×4 (02:57→20:39)
[2022-08-24 05:23] LABS: Anion Gap 10 mmol/L (10-20); BUN (Urea Nitrogen) 25 mg/dL (8.4-25.7); Calc. Creatinine Clearance 26 mL/min (70-130); Calcium 8.3 mg/dL (7.8-10.44); Carbon Dioxide 29 mmol/L (23-31); Chloride 99 mmol/L (98-107); Estimated GFR 18; Glucose 95 mg/dL (80-115); Magnesium 1.7 mg/dL (1.6-2.6); Potassium 3.7 mmol/L (3.5-5.1); Sodium 134 mmol/L (136-145)
[2022-08-24] MEDS ORDERED: cloNIDine 0.1mg/24 Hour PATCH TD SCH (09:00)
[2022-08-24] MEDS ORDERED: Magnesium Sulfate In Water 4 GM in Premix Bag 1 BAG IVPB SCH (09:00)
[2022-08-24] MEDS: Glycopyrrolate 1 MG TAB PO SCH ×2 (10:35→20:39)
[2022-08-24] MEDS: Aspirin Chewable 81 MG TAB PER TUBE SCH (10:35)
[2022-08-24] MEDS: Carvedilol 3.125 MG TAB PO SCH ×2 (10:35→16:29)
[2022-08-24] MEDS: Lansoprazole 15 MG/5 ML (BATCHED)UDCUP PER TUBE SCH (10:35)
[2022-08-24] MEDS: Heparin 5,000 UNITS/ML VIAL SC SCH ×3 (10:35→20:39)
[2022-08-24] MEDS: Aspirin 300 MG Suppository PR SCH (10:36)
[2022-08-24] MEDS: Atorvastatin Calcium 40 MG TAB PER TUBE SCH (20:39)
[2022-08-25] MEDS: Guaifenesin DM 100-10/5 ML UDCUP PER TUBE SCH ×4 (04:06→21:36)
[2022-08-25] MEDS: Cefepime 0.5 GM, Admixture Fee 1 EACH in Sodium Chloride 0.9% 100 ML IVPB SCH (04:06)
[2022-08-25 04:15] LABS: Anion Gap 9 mmol/L (10-20); BUN (Urea Nitrogen) 35 mg/dL (8.4-25.7); Calc. Creatinine Clearance 20 mL/min (70-130); Calcium 8.3 mg/dL (7.8-10.44); Carbon Dioxide 32 mmol/L (23-31); Chloride 97 mmol/L (98-107); Estimated GFR 13; Glucose 130 mg/dL (80-115); Magnesium 2.4 mg/dL (1.6-2.6); Potassium 3.6 mmol/L (3.5-5.1); Sodium 134 mmol/L (136-145)
[2022-08-25] MEDS: Ipratropium Bromide 2.5 ml Neb NEB SCH ×4 (07:42→23:27)
[2022-08-25] MEDS ORDERED: Heparin 10,000 UNITS/ 10 ML VIAL ONE (08:27)
[2022-08-25 10:29] LABS: Vancomycin, Random 14.9 ug/mL (See Comment)
[2022-08-25] MEDS: Aspirin Chewable 81 MG TAB PER TUBE SCH (10:45)
[2022-08-25] MEDS: Carvedilol 3.125 MG TAB PO SCH ×2 (10:45→16:01)
[2022-08-25] MEDS: Glycopyrrolate 1 MG TAB PO SCH ×2 (10:46→21:36)
[2022-08-25] MEDS: Aspirin 300 MG Suppository PR SCH (10:48)
[2022-08-25] MEDS: EPOETIN ALFA-EPBX (ESRD) 10,000 UNIT/ML VIAL SC SCH (10:49)
[2022-08-25] MEDS: Heparin 5,000 UNITS/ML VIAL SC SCH ×3 (10:49→21:37)
[2022-08-25] MEDS: Lansoprazole 15 MG/5 ML (BATCHED)UDCUP PER TUBE SCH (12:18)
[2022-08-25] MEDS: Scopolamine 1.5 mg/72 hour Patch TD SCH (13:19)
[2022-08-25] MEDS ORDERED: Vancomycin 1 GM in Premix Bag 1 BAG IVPB SCH (17:00)
[2022-08-25] MEDS: Atorvastatin Calcium 40 MG TAB PER TUBE SCH (21:36)
[2022-08-26] MEDS: Guaifenesin DM 100-10/5 ML UDCUP PER TUBE SCH ×4 (04:22→20:45)
[2022-08-26] MEDS: Cefepime 0.5 GM, Admixture Fee 1 EACH in Sodium Chloride 0.9% 100 ML IVPB SCH (04:22)
[2022-08-26 05:24] LABS: Anion Gap 9 mmol/L (10-20); BUN (Urea Nitrogen) 23 mg/dL (8.4-25.7); Calc. Creatinine Clearance 27 mL/min (70-130); Calcium 8.5 mg/dL (7.8-10.44); Carbon Dioxide 30 mmol/L (23-31); Chloride 99 mmol/L (98-107); Estimated GFR 20; Glucose 132 mg/dL (80-115); Potassium 3.5 mmol/L (3.5-5.1); Sodium 134 mmol/L (136-145)
[2022-08-26] MEDS: Ipratropium Bromide 2.5 ml Neb NEB SCH ×4 (06:55→22:20)
[2022-08-26] MEDS: Glycopyrrolate 1 MG TAB PO SCH ×2 (08:03→20:45)
[2022-08-26] MEDS: Heparin 5,000 UNITS/ML VIAL SC SCH ×3 (08:04→20:45)
[2022-08-26] MEDS: Lansoprazole 15 MG/5 ML (BATCHED)UDCUP PER TUBE SCH (08:04)
[2022-08-26] MEDS: Carvedilol 3.125 MG TAB PO SCH ×2 (08:04→16:31)
[2022-08-26] MEDS: Aspirin Chewable 81 MG TAB PER TUBE SCH (08:04)
[2022-08-26] MEDS: Aspirin 300 MG Suppository PR SCH (08:04)
[2022-08-26] MEDS: Atorvastatin Calcium 40 MG TAB PER TUBE SCH (20:45)
[2022-08-27] MEDS: Cefepime 0.5 GM, Admixture Fee 1 EACH in Sodium Chloride 0.9% 100 ML IVPB SCH (03:56)
[2022-08-27] MEDS: Guaifenesin DM 100-10/5 ML UDCUP PER TUBE SCH ×4 (03:56→21:14)
[2022-08-27 04:20] LABS: #Eosinphils 0.2 thou/uL (0.0-0.7); #Lymphocytes 1.2 thou/uL (1.20-3.40); #Monocytes 1.1 thou/uL (0.11-0.59); #Neutrophils 8.3 thou/uL (1.40-6.50); %Basophils 0.2 % (0.0-1.0); %Monocytes 9.8 % (0.0-10.0); Hemoglobin 7.3 g/dL (14.0-18.0); Mean Corpuscular Hemoglobin 24.7 pg (27.0-31.0); Mean Corpuscular Volume 82.6 fl (78.0-98.0); Mean Platelet Volume 8.2 fL (7.4-10.4); Platelet Count 420 10x3/uL (130-400); RBC Distribution Width 18.6 % (11.5-14.5); Red Blood Cell (RBC) Count 2.94 mill/uL (4.70-6.10); White Blood Cell (WBC) Count 10.8 10x3/uL (4.8-10.8)
[2022-08-27 04:35] LABS: Anion Gap 14 mmol/L (10-20); BUN (Urea Nitrogen) 34 mg/dL (8.4-25.7); Calc. Creatinine Clearance 21 mL/min (70-130); Calcium 8.5 mg/dL (7.8-10.44); Carbon Dioxide 27 mmol/L (23-31); Chloride 98 mmol/L (98-107); Estimated GFR 14; Glucose 138 mg/dL (80-115); Potassium 3.6 mmol/L (3.5-5.1); Sodium 135 mmol/L (136-145)
[2022-08-27] MEDS: Ipratropium Bromide 2.5 ml Neb NEB SCH ×3 (06:59→18:40)
[2022-08-27 07:18] LABS: Vancomycin, Random 18.6 ug/mL (See Comment)
[2022-08-27] MEDS: Lansoprazole 15 MG/5 ML (BATCHED)UDCUP PER TUBE SCH (10:08)
[2022-08-27] MEDS: Carvedilol 3.125 MG TAB PO SCH ×2 (10:08→16:28)
[2022-08-27] MEDS: Heparin 5,000 UNITS/ML VIAL SC SCH ×3 (10:09→21:15)
[2022-08-27] MEDS: Aspirin Chewable 81 MG TAB PER TUBE SCH (10:09)
[2022-08-27] MEDS: Glycopyrrolate 1 MG TAB PO SCH ×2 (10:09→21:14)
[2022-08-27] MEDS ORDERED: Heparin 10,000 UNITS/ 10 ML VIAL ONE (10:13)
[2022-08-27] MEDS: EPOETIN ALFA-EPBX (ESRD) 10,000 UNIT/ML VIAL SC SCH (11:03)
[2022-08-27] MEDS: Aspirin 300 MG Suppository PR SCH (12:51)
[2022-08-27] MEDS ORDERED: Vancomycin HCl 750 MG in Sodium Chloride 0.9% 250 ML 250 ML IVPB SCH (17:00)
[2022-08-27] MEDS: Atorvastatin Calcium 40 MG TAB PER TUBE SCH (21:14)
[2022-08-28] MEDS: Ipratropium Bromide 2.5 ml Neb NEB SCH ×4 (01:08→19:33)
[2022-08-28] MEDS: Guaifenesin DM 100-10/5 ML UDCUP PER TUBE SCH ×4 (04:18→21:07)
[2022-08-28 04:59] LABS: Anion Gap 9 mmol/L (10-20); BUN (Urea Nitrogen) 19 mg/dL (8.4-25.7); Calc. Creatinine Clearance 29 mL/min (70-130); Calcium 8.4 mg/dL (7.8-10.44); Carbon Dioxide 30 mmol/L (23-31); Chloride 99 mmol/L (98-107); Estimated GFR 21; Glucose 130 mg/dL (80-115); Potassium 3.4 mmol/L (3.5-5.1); Sodium 135 mmol/L (136-145)
[2022-08-28 07:18] LABS: Phosphorus 1.3 mg/dL (2.3-4.7)
[2022-08-28] MEDS ORDERED: Electrolyte Replacement Protocol 1 EACH FS SCH (07:45)
[2022-08-28] MEDS ORDERED: Potassium Phosphate 30 MMOL in Sodium Chloride 0.9% 250 ML 250 ML IVPB SCH (07:45)
[2022-08-28] MEDS ORDERED: Potassium Chloride 20 MEQ TAB PER TUBE SCH (09:30)
[2022-08-28] MEDS: Scopolamine 1.5 mg/72 hour Patch TD SCH (10:03)
[2022-08-28] MEDS: Aspirin Chewable 81 MG TAB PER TUBE SCH (10:04)
[2022-08-28] MEDS: Lansoprazole 15 MG/5 ML (BATCHED)UDCUP PER TUBE SCH (10:04)
[2022-08-28] MEDS: Carvedilol 3.125 MG TAB PO SCH ×2 (10:04→16:38)
[2022-08-28] MEDS: Heparin 5,000 UNITS/ML VIAL SC SCH ×3 (10:05→21:07)
[2022-08-28] MEDS ORDERED: Potassium Bicarbonate/Cit Ac 20 MEQ TAB PER TUBE SCH (10:30)
[2022-08-28] MEDS: Glycopyrrolate 1 MG TAB PO SCH ×2 (10:31→21:07)
[2022-08-28] MEDS: Atorvastatin Calcium 40 MG TAB PER TUBE SCH (21:07)
[2022-08-29] MEDS: Ipratropium Bromide 2.5 ml Neb NEB SCH ×4 (01:28→19:00)
[2022-08-29 05:39] LABS: #Eosinphils 0.1 thou/uL (0.0-0.7); #Lymphocytes 1.5 thou/uL (1.20-3.40); #Monocytes 1.1 thou/uL (0.11-0.59); #Neutrophils 10.3 thou/uL (1.40-6.50); %Basophils 0.3 % (0.0-1.0); %Eosinophils 1.1 % (0.0-10.0); %Lymphocytes 11.2 % (21.0-51.0); %Monocytes 8.5 % (0.0-10.0); Hemoglobin 7.5 g/dL (14.0-18.0); Mean Corpuscular HGB CONC 30.3 g/dL (32.0-36.0); Mean Corpuscular Hemoglobin 25.1 pg (27.0-31.0); Mean Corpuscular Volume 83.1 fl (78.0-98.0); Platelet Count 403 10x3/uL (130-400); RBC Distribution Width 18.8 % (11.5-14.5); Red Blood Cell (RBC) Count 2.98 mill/uL (4.70-6.10)
[2022-08-29 06:03] LABS: Anion Gap 15 mmol/L (10-20); BUN (Urea Nitrogen) 26 mg/dL (8.4-25.7); Calc. Creatinine Clearance 22 mL/min (70-130); Calcium 8.6 mg/dL (7.8-10.44); Carbon Dioxide 24 mmol/L (23-31); Chloride 97 mmol/L (98-107); Estimated GFR 15; Glucose 127 mg/dL (80-115); Magnesium 1.8 mg/dL (1.6-2.6); Sodium 132 mmol/L (136-145)
[2022-08-29 06:14] LABS: Phosphorus 2.6 mg/dL (2.3-4.7)
[2022-08-29] MEDS: Guaifenesin DM 100-10/5 ML UDCUP PER TUBE SCH ×4 (06:33→22:04)
[2022-08-29] MEDS: Lansoprazole 15 MG/5 ML (BATCHED)UDCUP PER TUBE SCH (09:25)
[2022-08-29] MEDS: Carvedilol 3.125 MG TAB PO SCH ×2 (09:26→16:07)
[2022-08-29] MEDS: Aspirin Chewable 81 MG TAB PER TUBE SCH (09:26)
[2022-08-29] MEDS: Glycopyrrolate 1 MG TAB PO SCH ×2 (09:26→22:04)
[2022-08-29] MEDS: Heparin 5,000 UNITS/ML VIAL SC SCH ×3 (09:26→22:04)
[2022-08-29] MEDS: clonazePAM 0.5 MG TAB PO PRN ×2 (14:32→23:47)
[2022-08-29] MEDS: Atorvastatin Calcium 40 MG TAB PER TUBE SCH (22:04)
[2022-08-30] MEDS: Ipratropium Bromide 2.5 ml Neb NEB SCH ×4 (00:39→22:21)
[2022-08-30 05:04] LABS: Anion Gap 13 mmol/L (10-20); BUN (Urea Nitrogen) 33 mg/dL (8.4-25.7); Calc. Creatinine Clearance 17 mL/min (70-130); Calcium 8.4 mg/dL (7.8-10.44); Carbon Dioxide 26 mmol/L (23-31); Chloride 96 mmol/L (98-107); Estimated GFR 11; Glucose 119 mg/dL (80-115); Potassium 3.7 mmol/L (3.5-5.1); Sodium 131 mmol/L (136-145)
[2022-08-30] MEDS: Guaifenesin DM 100-10/5 ML UDCUP PER TUBE SCH ×4 (06:11→22:16)
[2022-08-30] MEDS: Carvedilol 3.125 MG TAB PO SCH ×2 (10:14→16:58)
[2022-08-30] MEDS: Aspirin Chewable 81 MG TAB PER TUBE SCH (10:14)
[2022-08-30] MEDS: Heparin 5,000 UNITS/ML VIAL SC SCH ×3 (10:15→23:01)
[2022-08-30] MEDS: Lansoprazole 15 MG/5 ML (BATCHED)UDCUP PER TUBE SCH (10:16)
[2022-08-30] MEDS: Glycopyrrolate 1 MG TAB PO SCH ×2 (10:17→22:16)
[2022-08-30] MEDS ORDERED: Heparin 10,000 UNITS/ 10 ML VIAL ONE (10:32)
[2022-08-30] MEDS: Metoclopramide HCl 10 MG/2 ML VIAL IVP SCH ×2 (14:29→22:17)
[2022-08-30] MEDS: EPOETIN ALFA-EPBX (ESRD) 10,000 UNIT/ML VIAL SC SCH (14:29)
[2022-08-30] MEDS: Atorvastatin Calcium 40 MG TAB PER TUBE SCH (22:17)
[2022-08-31] MEDS: Ipratropium Bromide 2.5 ml Neb NEB SCH ×5 (02:12→23:13)
[2022-08-31] MEDS: Metoclopramide HCl 10 MG/2 ML VIAL IVP SCH ×3 (06:07→21:15)
[2022-08-31] MEDS: Guaifenesin DM 100-10/5 ML UDCUP PER TUBE SCH ×4 (06:07→21:15)
[2022-08-31 06:54] LABS: Anion Gap 15 mmol/L (10-20); BUN (Urea Nitrogen) 22 mg/dL (8.4-25.7); Calc. Creatinine Clearance 25 mL/min (70-130); Calcium 8.5 mg/dL (7.8-10.44); Carbon Dioxide 27 mmol/L (23-31); Chloride 97 mmol/L (98-107); Estimated GFR 17; Glucose 123 mg/dL (80-115); Potassium 3.6 mmol/L (3.5-5.1); Sodium 135 mmol/L (136-145)
[2022-08-31] MEDS: Lansoprazole 15 MG/5 ML (BATCHED)UDCUP PER TUBE SCH (08:47)
[2022-08-31] MEDS: Heparin 5,000 UNITS/ML VIAL SC SCH ×3 (08:51→21:15)
[2022-08-31] MEDS: Glycopyrrolate 1 MG TAB PO SCH ×2 (08:52→21:15)
[2022-08-31] MEDS: Scopolamine 1.5 mg/72 hour Patch TD SCH (08:52)
[2022-08-31] MEDS: Aspirin Chewable 81 MG TAB PER TUBE SCH (08:52)
[2022-08-31] MEDS: Carvedilol 3.125 MG TAB PO SCH ×2 (08:52→17:37)
[2022-08-31] MEDS: Atorvastatin Calcium 40 MG TAB PER TUBE SCH (21:15)
[2022-09-01] MEDS: Guaifenesin DM 100-10/5 ML UDCUP PER TUBE SCH ×4 (03:25→21:14)
[2022-09-01] MEDS: Metoclopramide HCl 10 MG/2 ML VIAL IVP SCH ×3 (05:35→21:14)
[2022-09-01] MEDS: Ipratropium Bromide 2.5 ml Neb NEB SCH ×4 (06:27→23:49)
[2022-09-01 07:06] LABS: Anion Gap 12 mmol/L (10-20); BUN (Urea Nitrogen) 31 mg/dL (8.4-25.7); Calc. Creatinine Clearance 18 mL/min (70-130); Calcium 8.5 mg/dL (7.8-10.44); Carbon Dioxide 28 mmol/L (23-31); Chloride 96 mmol/L (98-107); Estimated GFR 12; Glucose 146 mg/dL (80-115); Potassium 3.6 mmol/L (3.5-5.1); Sodium 132 mmol/L (136-145)
[2022-09-01] MEDS: Lansoprazole 15 MG/5 ML (BATCHED)UDCUP PER TUBE SCH (08:07)
[2022-09-01] MEDS: Carvedilol 3.125 MG TAB PO SCH ×2 (08:08→17:44)
[2022-09-01] MEDS: Glycopyrrolate 1 MG TAB PO SCH ×2 (08:08→21:14)
[2022-09-01] MEDS: Aspirin Chewable 81 MG TAB PER TUBE SCH (08:08)
[2022-09-01] MEDS: Heparin 5,000 UNITS/ML VIAL SC SCH ×3 (08:08→21:14)
[2022-09-01] MEDS ORDERED: Heparin 10,000 UNITS/ 10 ML VIAL ONE (08:57)
[2022-09-01] MEDS: EPOETIN ALFA-EPBX (ESRD) 10,000 UNIT/ML VIAL SC SCH (15:01)
[2022-09-01] MEDS: Atorvastatin Calcium 40 MG TAB PER TUBE SCH (21:14)
[2022-09-02] MEDS: Guaifenesin DM 100-10/5 ML UDCUP PER TUBE SCH ×4 (03:41→21:32)
[2022-09-02] MEDS: Metoclopramide HCl 10 MG/2 ML VIAL IVP SCH ×3 (05:46→21:32)
[2022-09-02] MEDS: Ipratropium Bromide 2.5 ml Neb NEB SCH ×4 (06:36→23:00)
[2022-09-02] MEDS: Aspirin Chewable 81 MG TAB PER TUBE SCH (07:59)
[2022-09-02] MEDS: Lansoprazole 15 MG/5 ML (BATCHED)UDCUP PER TUBE SCH (07:59)
[2022-09-02] MEDS: Glycopyrrolate 1 MG TAB PO SCH ×2 (07:59→21:31)
[2022-09-02] MEDS: Heparin 5,000 UNITS/ML VIAL SC SCH ×3 (07:59→21:32)
[2022-09-02] MEDS: Carvedilol 3.125 MG TAB PO SCH ×2 (07:59→15:53)
[2022-09-02 13:46] LABS: #Eosinphils 0.1 thou/uL (0.0-0.7); #Lymphocytes 1.3 thou/uL (1.20-3.40); #Monocytes 1.1 thou/uL (0.11-0.59); #Neutrophils 8.6 thou/uL (1.40-6.50); %Basophils 0.4 % (0.0-1.0); %Lymphocytes 11.7 % (21.0-51.0); %Monocytes 9.9 % (0.0-10.0); Hemoglobin 7.1 g/dL (14.0-18.0); Mean Corpuscular HGB CONC 30.5 g/dL (32.0-36.0); Mean Corpuscular Hemoglobin 25.1 pg (27.0-31.0); Mean Corpuscular Volume 82.2 fl (78.0-98.0); Mean Platelet Volume 7.4 fL (7.4-10.4); Platelet Count 294 10x3/uL (130-400); RBC Distribution Width 18.8 % (11.5-14.5); Red Blood Cell (RBC) Count 2.84 mill/uL (4.70-6.10); White Blood Cell (WBC) Count 11.2 10x3/uL (4.8-10.8)
[2022-09-02 14:05] LABS: Anion Gap 12 mmol/L (10-20); BUN (Urea Nitrogen) 26 mg/dL (8.4-25.7); Calc. Creatinine Clearance 21 mL/min (70-130); Calcium 8.4 mg/dL (7.8-10.44); Carbon Dioxide 29 mmol/L (23-31); Chloride 97 mmol/L (98-107); Estimated GFR 15; Glucose 130 mg/dL (80-115); Potassium 3.7 mmol/L (3.5-5.1); Sodium 134 mmol/L (136-145)
[2022-09-02] MEDS: Atorvastatin Calcium 40 MG TAB PER TUBE SCH (21:31)
[2022-09-03] MEDS: Guaifenesin DM 100-10/5 ML UDCUP PER TUBE SCH ×4 (02:53→21:45)
[2022-09-03] MEDS: Metoclopramide HCl 10 MG/2 ML VIAL IVP SCH ×3 (05:57→23:00)
[2022-09-03 06:43] LABS: Anion Gap 12 mmol/L (10-20); BUN (Urea Nitrogen) 33 mg/dL (8.4-25.7); Calc. Creatinine Clearance 18 mL/min (70-130); Calcium 8.5 mg/dL (7.8-10.44); Carbon Dioxide 28 mmol/L (23-31); Chloride 95 mmol/L (98-107); Estimated GFR 12; Glucose 128 mg/dL (80-115); Potassium 3.5 mmol/L (3.5-5.1); Sodium 131 mmol/L (136-145)
[2022-09-03] MEDS: Ipratropium Bromide 2.5 ml Neb NEB SCH ×3 (07:50→18:47)
[2022-09-03] MEDS ORDERED: Heparin 10,000 UNITS/ 10 ML VIAL ONE (08:46)
[2022-09-03] MEDS: Carvedilol 3.125 MG TAB PO SCH ×2 (09:01→18:20)
[2022-09-03] MEDS: Heparin 5,000 UNITS/ML VIAL SC SCH ×3 (09:01→21:45)
[2022-09-03] MEDS: Aspirin Chewable 81 MG TAB PER TUBE SCH (09:01)
[2022-09-03] MEDS: Glycopyrrolate 1 MG TAB PO SCH ×2 (09:12→21:45)
[2022-09-03] MEDS: Lansoprazole 15 MG/5 ML (BATCHED)UDCUP PER TUBE SCH (09:58)
[2022-09-03] MEDS: Scopolamine 1.5 mg/72 hour Patch TD SCH (09:59)
[2022-09-03] MEDS: EPOETIN ALFA-EPBX (ESRD) 10,000 UNIT/ML VIAL SC SCH (18:14)
[2022-09-03 18:23] LABS: HBSAB Concentration Less than 8.00 mIU/mL; HBSAg Index 0.26 S/CO (0-0.99); Hep B Surf AB Non-Reactive (NonReactive); Hep B Surf Ag Non-Reactive S/CO (NonReactive)
[2022-09-03] MEDS: Atorvastatin Calcium 40 MG TAB PER TUBE SCH (21:45)
[2022-09-04] MEDS: Ipratropium Bromide 2.5 ml Neb NEB SCH ×4 (00:58→18:25)
[2022-09-04] MEDS: Guaifenesin DM 100-10/5 ML UDCUP PER TUBE SCH ×4 (03:46→21:17)
[2022-09-04] MEDS: Metoclopramide HCl 10 MG/2 ML VIAL IVP SCH ×3 (05:20→21:18)
[2022-09-04 08:00] LABS: #Basophils 0.1 thou/uL (0.0-0.2); #Lymphocytes 1.4 thou/uL (1.20-3.40); #Monocytes 0.9 thou/uL (0.11-0.59); #Neutrophils 9.8 thou/uL (1.40-6.50); %Basophils 0.4 % (0.0-1.0); %Eosinophils 0.1 % (0.0-10.0); %Lymphocytes 11.3 % (21.0-51.0); %Monocytes 7.7 % (0.0-10.0); %Neutrophils 80.5 % (42.0-75.0); Anion Gap 14 mmol/L (10-20); BUN (Urea Nitrogen) 25 mg/dL (8.4-25.7); Calc. Creatinine Clearance 24 mL/min (70-130); Calcium 8.7 mg/dL (7.8-10.44); Carbon Dioxide 28 mmol/L (23-31); Chloride 96 mmol/L (98-107); Estimated GFR 18; Glucose 153 mg/dL (80-115); Hemoglobin 8.6 g/dL (14.0-18.0); Mean Corpuscular Hemoglobin 25.1 pg (27.0-31.0); Mean Corpuscular Volume 83.4 fl (78.0-98.0); Mean Platelet Volume 8.4 fL (7.4-10.4); Platelet Count 305 10x3/uL (130-400); RBC Distribution Width 18.4 % (11.5-14.5); Red Blood Cell (RBC) Count 3.42 mill/uL (4.70-6.10); Sodium 134 mmol/L (136-145); White Blood Cell (WBC) Count 12.2 10x3/uL (4.8-10.8)
[2022-09-04] MEDS: Aspirin Chewable 81 MG TAB PER TUBE SCH (09:09)
[2022-09-04] MEDS: Carvedilol 3.125 MG TAB PO SCH ×2 (09:09→16:05)
[2022-09-04] MEDS: Lansoprazole 15 MG/5 ML (BATCHED)UDCUP PER TUBE SCH (09:09)
[2022-09-04] MEDS: Heparin 5,000 UNITS/ML VIAL SC SCH ×3 (09:10→21:18)
[2022-09-04] MEDS: Glycopyrrolate 1 MG TAB PO SCH ×2 (09:10→21:18)
[2022-09-04] MEDS: Atorvastatin Calcium 40 MG TAB PER TUBE SCH (21:18)
[2022-09-05] MEDS: Ipratropium Bromide 2.5 ml Neb NEB SCH ×4 (00:22→18:25)
[2022-09-05] MEDS: Guaifenesin DM 100-10/5 ML UDCUP PER TUBE SCH ×4 (04:08→20:23)
[2022-09-05] MEDS: Metoclopramide HCl 10 MG/2 ML VIAL IVP SCH ×3 (05:09→20:23)
[2022-09-05 08:30] LABS: Anion Gap 17 mmol/L (10-20); BUN (Urea Nitrogen) 39 mg/dL (8.4-25.7); Calc. Creatinine Clearance 18 mL/min (70-130); Calcium 8.6 mg/dL (7.8-10.44); Carbon Dioxide 26 mmol/L (23-31); Chloride 95 mmol/L (98-107); Estimated GFR 13; Glucose 154 mg/dL (80-115); Potassium 3.8 mmol/L (3.5-5.1); Sodium 134 mmol/L (136-145)
[2022-09-05] MEDS: Carvedilol 3.125 MG TAB PO SCH ×2 (10:07→16:17)
[2022-09-05] MEDS: Lansoprazole 15 MG/5 ML (BATCHED)UDCUP PER TUBE SCH (10:07)
[2022-09-05] MEDS: Glycopyrrolate 1 MG TAB PO SCH ×2 (10:07→20:23)
[2022-09-05] MEDS: Aspirin Chewable 81 MG TAB PER TUBE SCH (10:07)
[2022-09-05] MEDS: Heparin 5,000 UNITS/ML VIAL SC SCH ×3 (10:09→20:23)
[2022-09-05] MEDS: Atorvastatin Calcium 40 MG TAB PER TUBE SCH (20:23)
[2022-09-06] MEDS: Ipratropium Bromide 2.5 ml Neb NEB SCH ×4 (00:50→18:50)
[2022-09-06] MEDS: Guaifenesin DM 100-10/5 ML UDCUP PER TUBE SCH ×4 (04:10→20:55)
[2022-09-06] MEDS: Metoclopramide HCl 10 MG/2 ML VIAL IVP SCH ×3 (05:36→20:56)
[2022-09-06 07:35] LABS: Anion Gap 16 mmol/L (10-20); BUN (Urea Nitrogen) 48 mg/dL (8.4-25.7); Calc. Creatinine Clearance 15 mL/min (70-130); Calcium 8.4 mg/dL (7.8-10.44); Carbon Dioxide 28 mmol/L (23-31); Chloride 92 mmol/L (98-107); Estimated GFR 10; Glucose 134 mg/dL (80-115); Sodium 132 mmol/L (136-145)
[2022-09-06] MEDS: Carvedilol 3.125 MG TAB PO SCH ×2 (08:24→15:05)
[2022-09-06] MEDS: Glycopyrrolate 1 MG TAB PO SCH ×2 (08:24→20:56)
[2022-09-06] MEDS: Heparin 5,000 UNITS/ML VIAL SC SCH ×3 (08:24→20:56)
[2022-09-06] MEDS: Aspirin Chewable 81 MG TAB PER TUBE SCH (08:24)
[2022-09-06] MEDS: Lansoprazole 15 MG/5 ML (BATCHED)UDCUP PER TUBE SCH (08:24)
[2022-09-06] MEDS: Scopolamine 1.5 mg/72 hour Patch TD SCH (08:24)
[2022-09-06] MEDS ORDERED: Heparin 10,000 UNITS/ 10 ML VIAL ONE (08:42)
[2022-09-06] MEDS: EPOETIN ALFA-EPBX (ESRD) 10,000 UNIT/ML VIAL SC SCH (15:20)
[2022-09-06] MEDS: Atorvastatin Calcium 40 MG TAB PER TUBE SCH (20:56)
[2022-09-07] MEDS: Ipratropium Bromide 2.5 ml Neb NEB SCH ×4 (00:25→18:50)
[2022-09-07] MEDS: Guaifenesin DM 100-10/5 ML UDCUP PER TUBE SCH ×4 (02:44→20:38)
[2022-09-07] MEDS: Metoclopramide HCl 10 MG/2 ML VIAL IVP SCH ×3 (04:52→21:02)
[2022-09-07 08:09] LABS: Anion Gap 15 mmol/L (10-20); BUN (Urea Nitrogen) 31 mg/dL (8.4-25.7); Calc. Creatinine Clearance 20 mL/min (70-130); Calcium 8.5 mg/dL (7.8-10.44); Carbon Dioxide 26 mmol/L (23-31); Chloride 96 mmol/L (98-107); Estimated GFR 15; Glucose 146 mg/dL (80-115); Potassium 3.7 mmol/L (3.5-5.1); Sodium 133 mmol/L (136-145)
[2022-09-07] MEDS: Carvedilol 3.125 MG TAB PO SCH ×2 (08:55→17:12)
[2022-09-07] MEDS: Heparin 5,000 UNITS/ML VIAL SC SCH ×3 (08:55→20:25)
[2022-09-07] MEDS: Glycopyrrolate 1 MG TAB PO SCH ×2 (08:55→20:24)
[2022-09-07] MEDS: Lansoprazole 15 MG/5 ML (BATCHED)UDCUP PER TUBE SCH (08:55)
[2022-09-07] MEDS: Aspirin Chewable 81 MG TAB PER TUBE SCH (08:55)
[2022-09-07 13:43] VITALS: BMI 27.7
[2022-09-07] MEDS: Atorvastatin Calcium 40 MG TAB PER TUBE SCH (20:24)
[2022-09-07] MEDS: Acetaminophen 325 MG TAB PER TUBE PRN (20:25)
[2022-09-08] MEDS: Ipratropium Bromide 2.5 ml Neb NEB SCH ×5 (00:37→23:32)
[2022-09-08] MEDS: Guaifenesin DM 100-10/5 ML UDCUP PER TUBE SCH ×4 (03:55→20:17)
[2022-09-08] MEDS: Metoclopramide HCl 10 MG/2 ML VIAL IVP SCH ×3 (05:15→20:22)
[2022-09-08 07:34] LABS: Anion Gap 14 mmol/L (10-20); BUN (Urea Nitrogen) 42 mg/dL (8.4-25.7); Calc. Creatinine Clearance 16 mL/min (70-130); Calcium 8.2 mg/dL (7.8-10.44); Carbon Dioxide 27 mmol/L (23-31); Chloride 95 mmol/L (98-107); Estimated GFR 11; Glucose 140 mg/dL (80-115); Potassium 4.1 mmol/L (3.5-5.1); Sodium 132 mmol/L (136-145)
[2022-09-08] MEDS: Carvedilol 3.125 MG TAB PO SCH ×2 (08:27→16:57)
[2022-09-08] MEDS: Lansoprazole 15 MG/5 ML (BATCHED)UDCUP PER TUBE SCH (08:27)
[2022-09-08] MEDS: Heparin 5,000 UNITS/ML VIAL SC SCH ×3 (08:27→20:16)
[2022-09-08] MEDS: EPOETIN ALFA-EPBX (ESRD) 10,000 UNIT/ML VIAL SC SCH (08:27)
[2022-09-08] MEDS: Glycopyrrolate 1 MG TAB PO SCH ×2 (08:27→20:16)
[2022-09-08] MEDS: Aspirin Chewable 81 MG TAB PER TUBE SCH (08:27)
[2022-09-08] MEDS ORDERED: Heparin 10,000 UNITS/ 10 ML VIAL ONE (09:01)
[2022-09-08] MEDS: Atorvastatin Calcium 40 MG TAB PER TUBE SCH (20:16)
[2022-09-08] MEDS: Acetaminophen 325 MG TAB PER TUBE PRN (20:27)
[2022-09-09] MEDS: Acetaminophen 325 MG TAB PER TUBE PRN (02:05)
[2022-09-09] MEDS: Guaifenesin DM 100-10/5 ML UDCUP PER TUBE SCH ×3 (02:06→14:29)
[2022-09-09] MEDS: Metoclopramide HCl 10 MG/2 ML VIAL IVP SCH ×2 (05:09→14:26)
[2022-09-09 07:19] LABS: #Eosinphils 0.2 thou/uL (0.0-0.7); #Lymphocytes 1.2 thou/uL (1.20-3.40); #Monocytes 0.8 thou/uL (0.11-0.59); #Neutrophils 7.3 thou/uL (1.40-6.50); %Basophils 0.3 % (0.0-1.0); %Monocytes 8.4 % (0.0-10.0); %Neutrophils 76.3 % (42.0-75.0); Hemoglobin 8.3 g/dL (14.0-18.0); Mean Corpuscular HGB CONC 30.8 g/dL (32.0-36.0); Mean Corpuscular Hemoglobin 25.7 pg (27.0-31.0); Mean Corpuscular Volume 83.5 fl (78.0-98.0); Mean Platelet Volume 8.2 fL (7.4-10.4); Platelet Count 295 10x3/uL (130-400); RBC Distribution Width 18.4 % (11.5-14.5); Red Blood Cell (RBC) Count 3.25 mill/uL (4.70-6.10); White Blood Cell (WBC) Count 9.6 10x3/uL (4.8-10.8)
[2022-09-09] MEDS: Scopolamine 1.5 mg/72 hour Patch TD SCH (09:03)
[2022-09-09] MEDS: Lansoprazole 15 MG/5 ML (BATCHED)UDCUP PER TUBE SCH (09:04)
[2022-09-09] MEDS: Heparin 5,000 UNITS/ML VIAL SC SCH ×2 (09:05→14:26)
[2022-09-09] MEDS: Aspirin Chewable 81 MG TAB PER TUBE SCH (09:05)
[2022-09-09] MEDS: Carvedilol 3.125 MG TAB PO SCH ×2 (09:05→16:26)
[2022-09-09 09:07] LABS: Calcium 8.1 mg/dL (7.8-10.44); Chloride 94 mmol/L (98-107); Potassium 3.8 mmol/L (3.5-5.1); Sodium 134 mmol/L (136-145)
[2022-09-09 09:08] LABS: Glucose 130 mg/dL (80-115)
[2022-09-09 09:09] LABS: Anion Gap 18 mmol/L (10-20); Carbon Dioxide 26 mmol/L (23-31)
[2022-09-09 09:11] LABS: Calc. Creatinine Clearance 23 mL/min (70-130); Estimated GFR 17
[2022-09-09 09:12] LABS: BUN (Urea Nitrogen) 26 mg/dL (8.4-25.7)
[2022-09-09] MEDS: Glycopyrrolate 1 MG TAB PO SCH (09:23)
[2022-09-09] MEDS: Ipratropium Bromide 2.5 ml Neb NEB SCH ×2 (11:22→14:42)
[2022-09-09 16:45] VITALS: BP 169/92; TEMP 97.7
== END 2022-09-09 17:45 | DRG 4 ==
LOC: ERS 16:38 → 2SW 20:50 → CCU 08-08 09:34 → IMCU/EMU 08-24 21:44 → 2NO 08-28 00:03 → T4-A 08-30 13:10
PROVIDERS: ADMIT Internal Medicine; ATTEND Family Medicine
PROC: 4A133R1 Monitoring of Arterial Saturation, Peripheral, Percutaneous Approach (ICD-10-PCS; 2022-08-08)
PROC: 3E03317 Introduction of Other Thrombolytic into Peripheral Vein, Percutaneous Approach (ICD-10-PCS; 2022-08-08)
PROC: 5A1955Z Respiratory Ventilation, Greater than 96 Consecutive Hours (ICD-10-PCS; 2022-08-08)
PROC: 0BH17EZ Insertion of Endotracheal Airway into Trachea, Via Natural or Artificial Opening (ICD-10-PCS; 2022-08-08)
PROC: 4A10X4Z Monitoring of Central Nervous Electrical Activity, External Approach (ICD-10-PCS; 2022-08-10)
PROC: 06HY33Z Insertion of Infusion Device into Lower Vein, Percutaneous Approach (ICD-10-PCS; 2022-08-10)
PROC: 0B113F4 Bypass Trachea to Cutaneous with Tracheostomy Device, Percutaneous Approach (ICD-10-PCS; 2022-08-15)
PROC: 0DH63UZ Insertion of Feeding Device into Stomach, Percutaneous Approach (ICD-10-PCS; 2022-08-15)
PROC: 30233J1 Transfusion of Nonautologous Serum Albumin into Peripheral Vein, Percutaneous Approach (ICD-10-PCS; 2022-08-16)
PROC: 0JH63XZ Insertion of Tunneled Vascular Access Device into Chest Subcutaneous Tissue and Fascia, Percutaneous Approach (ICD-10-PCS; principal; 2022-08-17)
PROC: 02HV33Z Insertion of Infusion Device into Superior Vena Cava, Percutaneous Approach (ICD-10-PCS; 2022-08-17)
PROC: B5181ZA Fluoroscopy of Superior Vena Cava using Low Osmolar Contrast, Guidance (ICD-10-PCS; 2022-08-17)
PROC: B548ZZA Ultrasonography of Superior Vena Cava, Guidance (ICD-10-PCS; 2022-08-17)
PROC: 0B21XFZ Change Tracheostomy Device in Trachea, External Approach (ICD-10-PCS; 2022-08-31)
PROC: 30233N1 Transfusion of Nonautologous Red Blood Cells into Peripheral Vein, Percutaneous Approach (ICD-10-PCS; 2022-09-03)
PROC: 5A1D70Z Performance of Urinary Filtration, Intermittent, Less than 6 Hours Per Day (ICD-10-PCS; 2022-09-06)
PROC: 5A1D70Z Performance of Urinary Filtration, Intermittent, Less than 6 Hours Per Day (ICD-10-PCS; 2022-09-08)
DX: N17.9 Acute kidney failure, unspecified (principal); G93.41 Metabolic encephalopathy; I50.23 Acute on chronic systolic (congestive) heart failure; I63.9 Cerebral infarction, unspecified; J96.01 Acute respiratory failure with hypoxia; J69.0 Pneumonitis due to inhalation of food and vomit; E87.20 Acidosis, unspecified; I42.8 Other cardiomyopathies; G81.94 Hemiplegia, unspecified affecting left nondominant side; E87.1 Hypo-osmolality and hyponatremia; E46 Unspecified protein-calorie malnutrition; I12.0 Hypertensive chronic kidney disease with stage 5 chronic kidney disease or end stage renal disease; M10.9 Gout, unspecified; K21.9 Gastro-esophageal reflux disease without esophagitis; E83.39 Other disorders of phosphorus metabolism; I25.10 Atherosclerotic heart disease of native coronary artery without angina pectoris; E11.22 Type 2 diabetes mellitus with diabetic chronic kidney disease; K43.9 Ventral hernia without obstruction or gangrene; E83.42 Hypomagnesemia; E66.9 Obesity, unspecified; N18.6 End stage renal disease; D63.1 Anemia in chronic kidney disease; I27.20 Pulmonary hypertension, unspecified; R13.10 Dysphagia, unspecified; Z20.822 Contact with and (suspected) exposure to COVID-19; Z68.28 Body mass index [BMI] 28.0-28.9, adult; Z98.890 Other specified postprocedural states; Z79.82 Long term (current) use of aspirin; Z79.899 Other long term (current) drug therapy; Z95.810 Presence of automatic (implantable) cardiac defibrillator
CPT/HCPCS: 36415; 36416; 36430; 36600; 70450; 70496; 70498; 71045; 74018; 80048; 80053; 80061; 80202; 82040; 82550; 82553; 82728; 82805; 83540; 83550; 83735; 83880; 84100; 84134; 84145; 84484; 85025; 85610; 85730; 86704; 86706; 86850; 86900; 86901; 87040; 87070; 87205; 87340; 87811; 90935; 93005; 93306; 94002; 94003; 94150; 94640; 94760; 95712; 95819; 95957; 96360; C1751; C1752; C9113; G0257; J0360; J0692; J1644; J2001; J2060; J2250; J2270; J2704; J2765; J2916; J3010; J3101; J3370; J3370-JW; J3371; J3475; J3480; J3490; J7042; J7050; J7070; J7999; P9016; P9047; Q5105; U0003; U0005